=== PATIENT | male | born 1945 | race Caucasian/White ===

== ENCOUNTER 2017-01-08 13:19 | Inpatient (IN) | payer OTHER, MEDICARE ==
[2017-01-08] MEDS ORDERED: SODIUM CHLORIDE 1,000 ML IV STA (13:43)
--- NOTE | 2017-01-08 13:43 | PDOC ---
History of Present Illness - General Chief Complaint: Revisit, Lab Variance Stated Complaint: LAB CHECK LOW NA Time Seen by Provider: 01/08/17 13:43 History Source: Patient Exam Limitations: No Limitations - History of Present Illness Timing/Duration: 1 week Severity: moderate Associated Symptoms: reports: cough, diaphoresis, fever/chills. denies: chest pain, headaches, seizure, shortness of breath, syncope, weakness Past History - Past Medical History Allergies/Adverse Reactions: Allergies Allergy/AdvReac Type Severity Reaction Status Date / Time cephalexin monohydrate Allergy Hives, rash Verified 01/08/17 13:20 [From Keflex] ciprofloxacin [From Cipro] Allergy Rash Verified 01/08/17 13:20 ciprofloxacin HCl Allergy Rash Verified 01/08/17 13:20 [From Cipro] shante Allergy Verified 01/08/17 13:20 Penicillins Allergy Itch - Verified 01/08/17 13:20 hands and feet poison joe extract Allergy Verified 01/08/17 13:20 Quinolones Allergy Verified 01/08/17 13:20 gingo fruit Allergy Uncoded 01/08/17 13:20 Home Medications: Ambulatory Orders Amlodipine Besylate 5 mg PO DAILY tablet 01/06/17 Mometasone Furoate [Asmanex] 1 puff IH DAILY inhaler 01/06/17 Hydrochlorothiazide [Hctz -] 12.5 mg PO DAILY 01/08/17 Valsartan [Diovan] 320 mg PO DAILY 01/08/17 HTN: Yes - Psycho/Social/Smoking Cessation Hx Suicidal Ideation: No Smoking History: Never smoked Hx Alcohol Use: No Drug/Substance Use Hx: No Substance Use Type: None Review of Systems - Review of Systems Constitutional: Yes: Chills, Diaphoresis, Fever HEENTM: Yes: Nose Congestion, Dental Problems. No: Tinnitus, Hearing Loss, Throat Pain, Difficulty Swallowing, Mouth Swelling Respiratory: Yes: Cough Cardiac (ROS): No: Symptoms Reported ABD/GI: No: Symptoms Reported : No: Symptoms Reported Musculoskeletal: No: Symptoms Reported Integumentary: No: Symptoms Reported Neurological: Yes: Dizziness All Other Systems: Reviewed and Negative *Physical Exam - Vital Signs Last Vital Signs Temp Pulse Resp BP Pulse Ox 97.7 F 81 17 114/68 100 01/08/17 13:22 01/08/17 13:22 01/08/17 13:22 01/08/17 13:22 01/08/17 13:22 - Physical Exam General Appearance: Yes: Nourished, Appropriately Dressed. No: Apparent Distress HEENT: positive: Sinus Tenderness Neck: positive: Lymphadenopathy (R) Respiratory/Chest: positive: Lungs Clear, Normal Breath Sounds Cardiovascular: positive: Regular Rhythm, Regular Rate Gastrointestinal/Abdominal: positive: Normal Bowel Sounds, Soft Musculoskeletal: positive: Normal Inspection Extremity: positive: Normal Capillary Refill, Normal Inspection, Normal Range of Motion Integumentary: positive: Normal Color, Dry, Warm Neurologic: positive: cash checker II-XII NML intact, Fully Oriented, Alert, Normal Mood/ Affect, Normal Response, Motor Strength 03/24 ED Treatment Course - LABORATORY CBC & Chemistry Diagram: 01/08/17 14:08 01/08/17 14:08 *DC/Admit/Observation/Transfer Diagnosis at time of Disposition: Sinusitis, Hyponatremia - Discharge Dispostion Condition at time of disposition: Stable Admit: Yes
[2017-01-08 14:45] LABS: EOSINOPHIL 2.5 % (0-4.5); MCH 29.8 pg (25.7-33.7); MCHC 32.3 g/dl (32.0-35.9); MEAN CELL VOLUME 92.2 fl (80-96); MEAN PLT VOLUME 7.9 fl (7.5-11.1); NEUTROPHILS 83.2 % (42.8-82.8); PLATELET COUNT 211 K/MM3 (134-434); RDW 13.1 % (11.9-15.9); WHITE BLOOD COUNT 5.7 K/mm3 (4.0-10.0)
[2017-01-08 14:52] LABS: ALBUMIN 3.4 g/dl (3.5-5.0); ALK PHOS 546 U/L (32-92); ANION GAP 10 (8-16); BILIRUBIN,TOTAL 0.3 mg/dl (0.2-1.0); CALCIUM 8.6 mg/dl (8.4-10.2); CO2 23 mmol/L (22-28); CREATININE 0.9 mg/dl (0.6-1.3); GLUCOSE,RANDOM 126 mg/dl (74-106); SGOT/AST 246 U/L (10-42); SGPT/ALT 244 U/L (10-40); TOT PROT 6.1 g/dl (6.4-8.3)
[2017-01-08 14:59] LABS: PH,URINE 6.5 (4.5-8); URINE APPEARANCE Clear; URINE BILIRUBIN 1+ (NEGATIVE); URINE GLUCOSE (UA) Negative (NEGATIVE); URINE KETONE 1+ (NEGATIVE); URINE LEUK ESTERASE Negative (NEGATIVE); URINE NITRITE Negative (NEGATIVE); URINE PROTEIN Negative (NEGATIVE); URINE UROBILINOGEN 0.2 E.U/dl (0.2-1.0)
[2017-01-08 15:06] LABS: URINE BLOOD Negative (NEGATIVE); URINE COLOR YELLOW
[2017-01-08 16:20] LABS: PLATELET COMMENT2 SLT PLT CLUMPING; PLATELET ESTIMATE ADEQUATE (NORMAL)
[2017-01-08] MEDS ORDERED: VANCOMYCIN 1,000 MG in DEXTROSE 5%-WATER - 250 ML IVPB ONE (16:34)
[2017-01-08] MEDS ORDERED: AZTREONAM 2 GM in DEXTROSE 5%-WATER - 100 ML IV ONE (16:34)
[2017-01-08] MEDS ORDERED: VANCOMYCIN 1,000 MG VIAL (RESTRICTED TO ID ONLY) ONE (16:51)
[2017-01-08] MEDS ORDERED: SODIUM CHLORIDE 1,000 ML IV SCH (17:15)
[2017-01-08 18:46] VITALS: BMI 22.4
[2017-01-08] MEDS ORDERED: AZTREONAM 1 GM in DEXTROSE 5%-WATER - 50 ML IVPB ONE (20:00)
--- NOTE | 2017-01-08 20:55 | HP ---
[id number] (Director of Head/Neck Surgery, [facility]) ENT: Dr. Burke Shaw ([facility]) Oral Surgeon: Dr. Jerry Negron ([facility]) HISTORY OF PRESENT ILLNESS: This is a 71 y/o male with a past medical history of Hypertension, Chronic Sinusitis . Who presents to the emergency department sent in by PMD for abnormal lab value- Na, +Blood Cultures. Patient reports having severe chills and fever 99.5- 101.5. He reports being on Bactrim since 01/01 and had stopped taking HCTZ last Monday per his PMD due being hyponatremic. Patient's spouse reports patient's recent period of agitation which she attributes to his low sodium level. Patient denies dizziness, cough, SOB, CP, AP, N/V/D, constipation, dysuria. Patient reports using Saline Washes via Neti bottle over 1.5yrs for sinus congestion ER course was notable for: (1) Lactic Acid 2.15 fluid bolus given (2) Na 129 (3) LFTs > 6xNL Recent Travel: None PAST MEDICAL HISTORY: See HPI PAST SURGICAL HISTORY: Radical Prostectomy 2006 R-Ruptured Anterior Tendon Repair ([facility]) Colonoscopy (09/2016) Social History: Smoking: Former cigarette/cigar > 40 yrs Alcohol: Socially- wine with dinner/occasions Drugs: Former- Marijuana use early 20s Family History: Mother: HTN, Colon Ca, age 95 Father: Chronic Sinus, HTN, Lymphoma, age 83 Grandfather: Stroke Allergies cephalexin monohydrate [From Keflex] Allergy (Verified 01/08/17 13:20) Hives, rash ciprofloxacin [From Cipro] Allergy (Verified 01/08/17 13:20) Rash ciprofloxacin HCl [From Cipro] Allergy (Verified 01/08/17 13:20) Rash shante Allergy (Verified 01/08/17 13:20) Penicillins Allergy (Verified 01/08/17 13:20) Itch - hands and feet poison joe extract Allergy (Verified 01/08/17 13:20) Quinolones Allergy (Verified 01/08/17 13:20) gingo fruit Allergy (Uncoded 01/08/17 13:20) HOME MEDICATIONS: Home Medications Medication Instructions Recorded Amlodipine Besylate 5 mg PO DAILY tablet 01/06/17 Mometasone Furoate [Asmanex] 1 puff IH DAILY inhaler 01/06/17 Hydrochlorothiazide [Hctz -] 12.5 mg PO DAILY 01/08/17 Lorazepam [Ativan] 1 mg PO HS PRN 01/08/17 Valsartan [Diovan] 320 mg PO DAILY 01/08/17 REVIEW OF SYSTEMS CONSTITUTIONAL: fever, chills Absent: diaphoresis, generalized weakness, malaise, loss of appetite, weight change HEENT: nasal congestion Absent: rhinorrhea, throat pain, throat swelling, difficulty swallowing, mouth swelling, ear pain, eye pain, visual changes CARDIOVASCULAR: Absent: chest pain, syncope, palpitations, irregular heart rate, lightheadedness , peripheral edema RESPIRATORY: Absent: cough, shortness of breath, dyspnea with exertion, orthopnea, wheezing, stridor, hemoptysis GASTROINTESTINAL: Absent: abdominal pain, abdominal distension, nausea, vomiting, diarrhea, constipation, melena, hematochezia GENITOURINARY: Absent: dysuria, frequency, urgency, hesitancy, hematuria, flank pain, genital pain MUSCULOSKELETAL: Absent: myalgia, arthralgia, joint swelling, back pain, neck pain SKIN: Absent: rash, itching, pallor HEMATOLOGIC/IMMUNOLOGIC: Absent: easy bleeding, easy bruising, lymphadenopathy, frequent infections ENDOCRINE: Absent: unexplained weight gain, unexplained weight loss, heat intolerance, cold intolerance NEUROLOGIC: Absent: headache, focal weakness or paresthesias, dizziness, unsteady gait, seizure, mental status changes, bladder or bowel incontinence PSYCHIATRIC: Absent: anxiety, depression, suicidal or homicidal ideation, hallucinations. PHYSICAL EXAMINATION Vital Signs - 24 hr 01/08/17 01/08/17 01/08/17 17:30 20:15 20:46 Temperature 98.4 F 99.8 F H Pulse Rate 84 Pulse Rate [ 86 Right] Respiratory 18 18 18 Rate Blood Pressure 121/89 Blood Pressure 155/60 [Left Arm] O2 Sat by Pulse 97 97 Oximetry (%) GENERAL: Awake, alert, and fully oriented, in no acute distress. HEAD: Normal with no signs of trauma. EYES: Pupils equal, round and reactive to light, extraocular movements intact, sclera anicteric, conjunctiva clear. No lid lag. EARS, NOSE, THROAT: Ears normal, nares patent, oropharynx clear without exudates. Moist mucous membranes. NECK: Normal range of motion, supple without lymphadenopathy, JVD, or masses. LUNGS: Breath sounds equal, clear to auscultation bilaterally. No wheezes, and no crackles. No accessory muscle use. HEART: Regular rate and rhythm, normal S1 and S2 without murmur, rub or gallop. ABDOMEN: Soft, nontender, not distended, normoactive bowel sounds, no guarding, no rebound, no masses. No hepatomegaly or splenomegaly. MUSCULOSKELETAL: Normal range of motion at all joints. No bony deformities or tenderness. No CVA tenderness. UPPER EXTREMITIES: 2+ pulses, warm, well-perfused. No cyanosis. No clubbing. Cap refill <2 seconds. No peripheral edema. LOWER EXTREMITIES: 2+ pulses, warm, well-perfused. No calf tenderness. No peripheral edema. NEUROLOGICAL: Cranial nerves II-XII intact. Normal speech. Gait not observed. PSYCHIATRIC: Cooperative. Good eye contact. Appropriate mood and affect. SKIN: Warm, dry, normal turgor, no rashes or lesions noted. Laboratory Results - last 24 hr 01/08/17 01/08/17 01/08/17 14:08 14:08 14:08 WBC RBC Hgb Hct MCV MCHC RDW Plt Count MPV Neutrophils % Lymphocytes % Monocytes % Eosinophils % Basophils % Platelet Estimate Platelet Comment Sodium 129 L Potassium 4.5 Chloride 96 L Carbon Dioxide 23 Anion Gap 10 BUN 16 Creatinine 0.9 Creat Clearance w eGFR > 60 Random Glucose 126 H Lactic Acid Calcium 8.6 Total Bilirubin 0.3 D AST 246 H D ALT 244 H D Alkaline Phosphatase 546 H D Total Protein 6.1 L Albumin 3.4 L Urine Color Yellow Urine Appearance Clear Urine pH 6.5 Ur Specific [place] 1.015 Urine Protein Negative Urine Glucose (UA) Negative Urine Ketones 1+ H Urine Blood Negative Urine Nitrite Negative Urine Bilirubin 1+ H Urine Urobilinogen 0.2 e.u/dl Ur Leukocyte Esterase Negative Ur Random Sodium 29 Ur Random Potassium 44.1 Ur Random Chloride 45 01/08/17 01/08/17 01/08/17 14:08 14:08 17:50 WBC 5.7 RBC 4.34 Hgb 12.9 Hct 40.0 MCV 92.2 MCHC 32.3 RDW 13.1 Plt Count 211 MPV 7.9 Neutrophils % 83.2 H Lymphocytes % 7.1 L D Monocytes % 7.2 Eosinophils % 2.5 Basophils % 0.0 Platelet Estimate Adequate Platelet Comment Slt plt clumping Sodium Potassium Chloride Carbon Dioxide Anion Gap BUN Creatinine Creat Clearance w eGFR Random Glucose Lactic Acid 2.159 H* 1.050 Calcium Total Bilirubin AST ALT Alkaline Phosphatase Total Protein Albumin Urine Color Urine Appearance Urine pH Ur Specific [place] Urine Protein Urine Glucose (UA) Urine Ketones Urine Blood Urine Nitrite Urine Bilirubin Urine Urobilinogen Ur Leukocyte Esterase Ur Random Sodium Ur Random Potassium Ur Random Chloride ASSESSMENT/PLAN: This is a 71 y/o male with a PMHx of: HTN, Sinus Infections. Presents to the ED with Fever, Chills, abnormal lab values. Admitted for Acute Sepsis with Sinusitis, Acute Hyponatremia for further evaluation of their emergent condition. Plan: 1 Acute Sepsis w Sinusitis - Likely due to Klebsiella Oxytoca - Blood Cultures-pending - Influenza Swab- negative - CT report- reviewed - NS bolus, Vancomycin/Azactam given in ED, patient has known allergies to PCN, Quinolones, Cephalosporins - Will continue Vanco, Azactam - Appreciate ID Consult - Appreciate ENT consult - Lactic Acid trending down- 2.15~1.05, post fluid bolus - Continue IVF - Monitor for fever - Monitor CBC 2. Hyponatremia - Likely secondary to HCTZ - Fluid Bolus given in ED - Continue IVF - Na corrected 133 - Monitor BMP 3. Transaminitis - Likely secondary to infection - Abdominal US- pending - Avoid Acetaminophen - Monitor BMP 4. HTN - Continue Norvasc, Valsartan - Hold HCTZ 2/2 Hyponatremia 5. FEN - NS@75ml/hr - Replete Na - Low Na Diet 6. DVT Prophylaxis - OOB - SCDs Code Status: Full Code Dispo: Admit for inpatient care Problem List - Problem (1) Hyponatremia Code(s): E87.1 - HYPO-OSMOLALITY AND HYPONATREMIA (2) Sinusitis Code(s): J32.9 - CHRONIC SINUSITIS, UNSPECIFIED (3) Lactic acidemia Code(s): E87.2 - ACIDOSIS (4) Transaminitis Code(s): R74.0 - NONSPEC ELEV OF LEVELS OF TRANSAMNS & LACTIC ACID DEHYDRGNSE (5) HTN (hypertension) Code(s): I10 - ESSENTIAL (PRIMARY) HYPERTENSION (6) DVT prophylaxis Code(s): EQN3547 - Visit type - Emergency Visit Emergency Visit: Yes ED Registration Date: 01/08/17 Care time: The patient presented to the Emergency Department on the above date and was hospitalized for further evaluation of their emergent condition. - New Patient This patient is new to me today: Yes Date on this admission: 01/08/17 - Critical Care Critical Care patient: No
[2017-01-08] MEDS: HEPARIN NA (PORCINE) 5,000 UNITS/ML 1ML VIAL SQ SCH (21:12)
[2017-01-08] MEDS ORDERED: LORazepam 0.5 MG TABLET PO PRN (21:53)
--- NOTE | 2017-01-09 07:35 | PN ---
[id number] patient is a 71 y/o male with a past medical history of Hypertension , Chronic Sinusitis. patient was admitted for hyponatremia and transanimitis, patient was found to have subacute sinusitis. PCP: Dr. Segundo ENT: Dr. Osvaldo Montana [phone] (Director of Head/Neck Surgery, [facility]) ENT: Dr. Burke Shaw ([facility]) Oral Surgeon: Dr. Jerry Negron ([facility]) Vital Signs Period Temp Pulse Resp BP Sys/Mak Pulse Ox Last 24 Hr 98.4 F-99.8 F 69-86 18-18 102-155/60-89 97-97 GENERAL: The patient is awake, alert, and fully oriented, in no acute distress. HEAD: Normal with no signs of trauma. EYES: PERRL, extraocular movements intact, sclera anicteric, conjunctiva clear. No ptosis. ENT: Ears normal, nares patent, oropharynx clear without exudates, moist mucous membranes. maxillary sinus tenderness. nasal congestion noted NECK: Trachea midline, full range of motion, supple. LUNGS: Breath sounds equal, clear to auscultation bilaterally, no wheezes, no crackles, no accessory muscle use. HEART: Regular rate and rhythm, S1, S2 without murmur, rub or gallop. ABDOMEN: Soft, nontender, nondistended, normoactive bowel sounds, no guarding, no rebound, no hepatosplenomegaly, no masses. EXTREMITIES: 2+ pulses, warm, well-perfused, no edema. NEUROLOGICAL: Cranial nerves II through XII grossly intact. Normal speech, gait not observed. PSYCH: Normal mood, normal affect. SKIN: Warm, dry, normal turgor, no rashes or lesions noted Laboratory Results - last 24 hr 01/08/17 17:50 Lactic Acid 1.050 CBC WBC 4.3 K/mm3 (4.0-10.0) 01/09/17 07:40 RBC 3.87 M/mm3 (4.00-5.60) L 01/09/17 07:40 Hgb 11.8 GM/dl (11.7-16.9) 01/09/17 07:40 Hct 35.8 % (35.4-49) 01/09/17 07:40 MCV 92.7 fl (80-96) 01/09/17 07:40 MCHC 32.8 g/dl (32.0-35.9) 01/09/17 07:40 RDW 13.6 % (11.9-15.9) 01/09/17 07:40 Plt Count 200 K/MM3 (134-434) 01/09/17 07:40 MPV 8.2 fl (7.5-11.1) 01/09/17 07:40 Neutrophils % 60.8 % (42.8-82.8) D 01/09/17 07:40 Lymphocytes % 18.9 % (8-40) D 01/09/17 07:40 Monocytes % 13.1 % (3.8-10.2) H D 01/09/17 07:40 Eosinophils % 6.8 % (0-4.5) H D 01/09/17 07:40 Basophils % 0.4 % (0-2.0) D 01/09/17 07:40 Platelet Estimate Adequate (NORMAL) 01/08/17 14:08 Platelet Comment Few large plts 01/08/17 14:08 Platelet Comment Slt plt clumping 01/08/17 14:08 CMP Sodium 132 mmol/L (136-145) L 01/09/17 08:00 Potassium 3.9 mmol/L (3.5-5.1) 01/09/17 08:00 Chloride 101 mmol/L (98-107) 01/09/17 08:00 Carbon Dioxide 24 mmol/L (22-28) 01/09/17 08:00 Anion Gap 7 (8-16) L 01/09/17 08:00 BUN 11 mg/dl (7-18) D 01/09/17 08:00 Creatinine 0.9 mg/dl (0.6-1.3) 01/09/17 08:00 Creat Clearance w eGFR > 60 (>60) 01/09/17 08:00 Random Glucose 105 mg/dl (74-106) 01/09/17 08:00 Lactic Acid 0.734 mmol/L (0.4-2.0) 01/09/17 07:40 Calcium 8.1 mg/dl (8.4-10.2) L 01/09/17 08:00 Magnesium 2.0 mg/dL (1.8-2.4) 01/09/17 08:00 Total Bilirubin 0.5 mg/dl (0.2-1.0) D 01/09/17 08:00 AST 209 U/L (10-42) H 01/09/17 08:00 ALT 234 U/L (10-40) H 01/09/17 08:00 Alkaline Phosphatase 551 U/L (32-92) H 01/09/17 08:00 Total Protein 5.1 g/dl (6.4-8.3) L 01/09/17 08:00 Albumin 2.8 g/dl (3.5-5.0) L 01/09/17 08:00 Active Medications Generic Name Dose Route Start Last Admin Trade Name Freq PRN Reason Stop Dose Admin Heparin Sodium (Porcine) 5,000 unit 01/08/17 22:00 01/08/17 21:12 Heparin - SQ 5,000 unit BID MARINA Administration Ibuprofen 400 mg 01/08/17 21:52 Motrin - PO Q6H PRN PAIN Lorazepam 0.5 mg 01/08/17 21:53 Ativan - PO HS PRN INSOMNIA Microbiology 01/08/17 17:50 Nasopharyngeal Swab Influenza Types A,B Antigen (AUSTYN) - Final , negative 01/08/17 17:50 Nasopharyngeal Swab - Final IMAGING CT scan of sinus: multifocal chronic/subacute sinusitis involving left frontal and left maxillary sinus, ? left maxilary sinus muccocele CT of Head: no mass, no ich noted, paranasal sinus inflammatory changes chest xray,no infilitrate no effusion noted ASSESSMENT/PLAN: 1) ID Acute Sinusitis - pt reports + culture of klebsiella oxytoca from sinus last week, continue vanco and clindaymcin as per ID, requested microbiology and sensitivity report form [place], will bring in latest micro report - lactic acid wnl, no leukocytosisi noted pt afebrile - Blood Cultures-ntd from 01/06/17, blood cultures 01/08 pending - pending mri of sinus 2) neph hyponatremia - likely secondary from dehydration - serum sodium trending upward, close monitoring, repeat BMP in AM - hold hctz 3)GI transanimitis - pt reports taking bactrim last dose 01/07, likely secondary to adverse reaction vs sepsis - abdominal ultrasound, liver and kidney cyst noted, CBD dilation noted. homegenous liver - benign abdominal exam, LFT's trending downward 3) card HTN - Continue Norvasc, Valsartan - b/p at goal - Hold HCTZ 2/2 Hyponatremia F/E/N -regular diet DVT Prophylaxis - OOB - SCDs - heparin Code Status: Full Code Dispo: Admit for inpatient care, case discussed with Dr Shaw (patient's private ENT) at [facility], requested to hold transfer and he will accept patient for transfer to [place] if patient is need of emergent surgical intervention at this time. Dr Shaw agrees with IV antibiotics and requests to be kept informed of all diagnostics, Dr Montana (patient's private ENT) at [facility] will be out of the area this week and is unavailable. lengthy conversation with and patient in regards to transfer to [place], both patient and request to stay at [facility] for IV antibiotics, if any surgical intervention is required, patient and is requesting transfer to [facility]. Visit type - Emergency Visit Emergency Visit: Yes ED Registration Date: 01/08/17 Care time: The patient presented to the Emergency Department on the above date and was hospitalized for further evaluation of their emergent condition. - New Patient This patient is new to me today: Yes Date on this admission: 01/09/17 - Critical Care Critical Care patient: No - Discharge Referral Referred to [facility] Yes Physician Referral: Evangelista Spencer MD (Fam Med), Nando Segundo MD (Int Med)
--- NOTE | 2017-01-09 08:40 | EKG ---
Test Reason : Blood Pressure : / mmHG Vent. Rate : 077 BPM Atrial Rate : 077 BPM P-R Int : 166 ms QRS Dur : 084 ms QT Int : 364 ms P-R-T Axes : 011 -02 035 degrees QTc Int : 411 ms NORMAL SINUS RHYTHM NORMAL ECG NO PREVIOUS ECGS AVAILABLE Confirmed by VANESA VANESSA MD ([id number]) on 01/09/2017 8:39:59 AM Referred By: ITALO Confirmed By:VANESA VANESSA MD
--- NOTE | 2017-01-09 08:59 | HOSP ---
Subjective - Review of Symptoms Events since last encounter: Received phone call on01/08/2017 around 6:30Pm from Dr.Salvator Tobias (Head/ Neak surgeon) who is taking care of the patient at [facility], would arrange a transfer for 01/09/2017. Possible transfer to [facility] today. Tx will be arranged by . Physical Examination Vital Signs: Vital Signs Temperature 98.8 F 01/09/17 06:00 Pulse Rate 69 01/09/17 06:00 Respiratory Rate 18 01/09/17 06:00 Blood Pressure 102/60 01/09/17 06:00 O2 Sat by Pulse Oximetry (%) 97 01/09/17 06:00
[2017-01-09 09:07] LABS: INR 1.1 (0.82-1.09); PROTHROMBIN TIME (PATIENT) 12.3 SEC (10.2-13.0)
[2017-01-09 09:27] LABS: ALBUMIN 2.8 g/dl (3.5-5.0); ALK PHOS 551 U/L (32-92); ANION GAP 7 (8-16); BILIRUBIN,TOTAL 0.5 mg/dl (0.2-1.0); CALCIUM 8.1 mg/dl (8.4-10.2); CO2 24 mmol/L (22-28); CREATININE 0.9 mg/dl (0.6-1.3); GLUCOSE,RANDOM 105 mg/dl (74-106); SGOT/AST 209 U/L (10-42); SGPT/ALT 234 U/L (10-40); TOT PROT 5.1 g/dl (6.4-8.3)
[2017-01-09 09:48] LABS: BASOPHIL 0.4 % (0-2.0); EOSINOPHIL 6.8 % (0-4.5); MCH 30.4 pg (25.7-33.7); MCHC 32.8 g/dl (32.0-35.9); MEAN CELL VOLUME 92.7 fl (80-96); MEAN PLT VOLUME 8.2 fl (7.5-11.1); NEUTROPHILS 60.8 % (42.8-82.8); PLATELET COUNT 200 K/MM3 (134-434); RDW 13.6 % (11.9-15.9); WHITE BLOOD COUNT 4.3 K/mm3 (4.0-10.0)
[2017-01-09] MEDS: HEPARIN NA (PORCINE) 5,000 UNITS/ML 1ML VIAL SQ SCH ×2 (09:51→22:17)
--- NOTE | 2017-01-09 10:40 | PN ---
Progress Note (short form) - Note Progress Note: ID Consult dictated Pansinusitis Fever, possible sepsis v. adverse drug rxn ( Bactrim) Elevated LFTs possible adverse drug rxn Multiple drug allergies ENT evaluation Empiric vanco/ aztreonam
[2017-01-09] MEDS: VANCOMYCIN 1 GRAM (PRE-DOCKED) 250 ML IVPB SCH ×2 (11:16→22:16)
[2017-01-09] MEDS: AZTREONAM 1 GM in DEXTROSE 5%-WATER - 50 ML IVPB SCH ×2 (11:16→17:35)
[2017-01-09 11:47] LABS: ALBUMIN 2.8 g/dl (3.5-5.0); BILIRUBIN,DIRECT 0.4 mg/dl (0.0-0.2); BILIRUBIN,TOTAL 0.6 mg/dl (0.2-1.0); TOT PROT 5.2 g/dl (6.4-8.3)
--- NOTE | 2017-01-09 12:51 | CONS ---
DATE OF CONSULTATION: DATE OF DICTATION: 01/09/2017 The patient is a 71-year-old male who is evaluated for fever. The patient has a long history of chronic sinusitis, for which he is followed at [facility]. He was recently evaluated for acute exacerbation and was prescribed antibiotics. He reports that in November 2016 he developed a dental infection and was treated with clindamycin and clarithromycin. Most recently he was seen in [facility], where a "swab" of his nasopharynx was performed. His reports that culture revealed Klebsiella oxytoca. He had completed an 8-day course of oral Bactrim on the day prior to admission. He now presents with worsening frontal sinus pain, fever and chills. He had presented to his primary care doctor, where he was found to be hyponatremic and had elevated liver enzymes. On admission, a CAT scan was performed and showed pansinusitis with opacification of the left frontal and left maxillary sinuses as well as evidence of chronic sinusitis involving the right frontal, right ethmoid, and right maxillary sinuses. Because of multiple antibiotic allergies, he was empirically treated with vancomycin and Azactam. His course was complicated by hyponatremia and elevated liver enzymes. He denies abdominal pain. No nausea, vomiting, or diarrhea. No known prior history of abnormal liver enzymes. Past medical history positive for chronic sinusitis, hypertension. PAST SURGICAL HISTORY: Status post prostatectomy. Allergies to PENICILLIN, CEPHALEXIN, CIPROFLOXACIN. Patient reports allergies to the BETA-LACTAMS dates back to his 20s, when he had developed a rash. In addition, he developed rash with CIPROFLOXACIN. Medications include Norvasc, Asmanex. SOCIAL HISTORY: Lives at home with his . He is a former smoker. Reports drinking wine. No history of alcohol abuse or illicit drug use. SYSTEMS REVIEW: Neurologic: Positive for some agitation, as per his . Cardiac: Negative chest pain or palpitations. Respiratory: Negative cough or sputum production. Gastrointestinal: Negative vomiting or diarrhea. Genitourinary: Negative for urinary tract infection. LABORATORY DATA: White count 4.3, 60 neutrophils, 18 lymphocytes, 3 eosinophils. Hematocrit 35.8, platelet count 200. Sodium 132, BUN 11, creatinine 0.9, total bilirubin 0.3, alkaline phosphatase 546, AST 246, ALT 244. Urinalysis negative. Flu swab negative. PHYSICAL EXAMINATION: General: He is awake and alert. He is not acutely toxic appearing. He has somewhat nasal intonation. He is in no acute distress. Breathing is nonlabored. Vital Signs: Temperature 98.8. Blood pressure 102/60. Pulse 69, regular. Respirations 18 per minute. ENT: There is tenderness present over the maxillary sinuses bilaterally. Sclerae anicteric. Oropharynx negative. Heart Sounds: S1, S2. Lungs: Crepitations at the bases bilaterally. Abdomen: Soft. No tenderness elicited. No mass, rebound or rigidity. Extremities: Negative for edema. IMPRESSION: 1. Pansinusitis. 2. Fever, possible sepsis versus adverse drug reaction (Bactrim). 3. Elevated liver enzymes, possible adverse drug reaction. 4. Multiple drug allergies. Agree with ENT evaluation, empiric antibiotic coverage for sinusitis, in this patient with multiple antibiotic allergies, with vancomycin and Azactam. The patient's will bring in the culture report from [facility] with respect to sinus isolate. Suspect recent febrile illness, eosinophilia, and elevated liver enzymes may be secondary to recent Bactrim therapy. Etiology of hyponatremia not clear. Case discussed with patient's present at the time of examination. Will follow. Thank you for the kind referral. ISHAN LAWTON M.D. JEREMY/[id number]
[2017-01-09] MEDS ORDERED: SODIUM CHLORIDE 1,000 ML IV SCH ×2 (14:15→20:00)
[2017-01-09] MEDS ORDERED: PT OWN MED DRAWER 7, Y5N ONE (16:47)
[2017-01-09] MEDS: IBUPROFEN 400 MG TABLET (FP) PO PRN ×2 (16:48→23:08)
[2017-01-09] MEDS ORDERED: OXYMETAZOLINE 0.05% NASAL SOLUTION 15 ML BOTTLE NS PRN (18:48)
[2017-01-09] MEDS ORDERED: LORazepam 1 MG TABLET PO PRN (18:49)
[2017-01-09] MEDS ORDERED: SODIUM CHLORIDE 1,000 ML IV STA (19:01)
--- NOTE | 2017-01-09 21:32 | HOSP ---
Subjective - Review of Symptoms Events since last encounter: Advised 5:00 pm patient febrile to 100.9. Ordered dose of motrin be given.. Advised 6:00 borderline hypotensive. Ordered bolus 1L NS x 1 and continue hourly rate at 75ml/hr. Discussed case with . Answered all questions. Advised she could call Dr. Salas, ID sales representative consultant on case. Discussed with nursing truck repair supervisor 's concern that a hospitalist MD is not at [facility]. was advised we would transfer to patient to [facility] and patient would be placed on teaching service. declined. Physical Examination Vital Signs: Vital Signs Temperature 99.3 F 01/09/17 18:15 Pulse Rate 66 01/09/17 18:15 Respiratory Rate 16 01/09/17 20:49 Blood Pressure 103/55 01/09/17 18:15 O2 Sat by Pulse Oximetry (%) 98 01/09/17 20:49 Labs: CBC, BMP 01/09/17 07:40 01/09/17 08:00
[2017-01-09] MEDS: FLUTICASONE PROP 0.05% 16 GM NASAL SPRAY NS SCH (22:23)
[2017-01-09] MEDS ORDERED: LORazepam 0.5 MG TABLET ONE (22:55)
[2017-01-10] MEDS ORDERED: PT OWN MED DRAWER 7, Y5N ONE ×3 (01:26→17:51)
[2017-01-10] MEDS: AZTREONAM 1 GM in DEXTROSE 5%-WATER - 50 ML IVPB SCH ×3 (01:35→17:55)
[2017-01-10 08:46] LABS: ALBUMIN 2.7 g/dl (3.5-5.0); ALK PHOS 502 U/L (32-92); ANION GAP 7 (8-16); BILIRUBIN,TOTAL 0.7 mg/dl (0.2-1.0); CALCIUM 8.2 mg/dl (8.4-10.2); CO2 24 mmol/L (22-28); CREATININE 0.6 mg/dl (0.6-1.3); GLUCOSE,RANDOM 100 mg/dl (74-106); MAGNESIUM 1.9 mg/dL (1.8-2.4); PHOSPHOROUS 3.2 mg/dl (2.5-4.6); SGOT/AST 109 U/L (10-42); SGPT/ALT 183 U/L (10-40)
[2017-01-10 09:08] LABS: BASOPHIL 0.7 % (0-2.0); EOSINOPHIL 9.1 % (0-4.5); MCH 28.9 pg (25.7-33.7); MCHC 31.2 g/dl (32.0-35.9); MEAN CELL VOLUME 92.7 fl (80-96); MEAN PLT VOLUME 7.6 fl (7.5-11.1); NEUTROPHILS 54.3 % (42.8-82.8); PLATELET COUNT 234 K/MM3 (134-434); RDW 13.5 % (11.9-15.9); WHITE BLOOD COUNT 5.2 K/mm3 (4.0-10.0)
[2017-01-10] MEDS: FLUTICASONE PROP 0.05% 16 GM NASAL SPRAY NS SCH (09:34)
[2017-01-10] MEDS: HEPARIN NA (PORCINE) 5,000 UNITS/ML 1ML VIAL SQ SCH ×2 (09:34→21:35)
[2017-01-10] MEDS: VANCOMYCIN 1 GRAM (PRE-DOCKED) 250 ML IVPB SCH ×2 (10:03→22:23)
--- NOTE | 2017-01-10 10:35 | PN ---
Progress Note, Physician History of Present Illness: Feeling better C/O mild frontal sinus congestion, nasal discharge No fever/ chills Tolerating antibiotics Blood c/s (-) WBC WNL with eosinophilia LFTs improving - Current Medication List Current Medications: Active Medications Fluticasone Propionate (Flonase -) 2 spray NS DAILY MARINA Last Admin: 01/10/17 09:34 Dose: 2 sprays Heparin Sodium (Porcine) (Heparin -) 5,000 unit SQ BID MARINA Last Admin: 01/10/17 09:34 Dose: 5,000 unit Vancomycin HCl (Vancomycin (Pre-Docked)) 250 mls @ 166.667 mls/hr IVPB Q12H MARINA Last Admin: 01/10/17 10:03 Dose: 166.667 mls/hr Aztreonam 1 gm/ Dextrose 50 mls @ 100 mls/hr IVPB Q8H-IV MARINA PRN Reason: Protocol Last Admin: 01/10/17 09:35 Dose: 100 mls/hr Ibuprofen (Motrin -) 400 mg PO Q6H PRN PRN Reason: PAIN Last Admin: 01/09/17 23:08 Dose: 400 mg Lorazepam (Ativan -) 0.5 mg PO HS PRN PRN Reason: INSOMNIA Lorazepam (Ativan -) 1 mg PO HS PRN PRN Reason: INSOMNIA Oxymetazoline HCl (Afrin -) 2 spray NS BID PRN PRN Reason: NASAL CONGESTION - Objective Vital Signs: Vital Signs Temperature 98.4 F 01/10/17 05:32 Pulse Rate 69 01/10/17 05:32 Respiratory Rate 18 01/10/17 08:58 Blood Pressure 116/58 01/10/17 05:32 O2 Sat by Pulse Oximetry (%) 95 01/10/17 08:58 Constitutional: Yes: No Distress Eyes: Yes: Conjunctiva Clear HENT: Yes: Other (no tenderness over frontal/ maxillary sinuses) Cardiovascular: Yes: Regular Rate and Rhythm, S2 Respiratory: Yes: CTA Bilaterally Gastrointestinal: Yes: Normal Bowel Sounds, Soft. No: Tenderness Edema: No Labs: CBC, BMP 01/10/17 07:56 01/10/17 07:56 INR, PTT INR 1.10 (0.82-1.09) 01/09/17 07:40 Assessment/Plan Chronic sinusitis Probable adverse drug reaction secondary to Bactrim Probable DRESS syndrome- improved Elevated LFTs- probably secondary to Bactrim- improved Hyponatremia- improved If blood c/s negative at 48hr (later today), stop antibiotics Outpatient ENT follow up at [facility] Discussed with at bedside
--- NOTE | 2017-01-10 13:38 | PN ---
[id number] OBJECTIVE: patient is a 71 y/o male with a past medical history of Hypertension , Chronic Sinusitis. patient was admitted for hyponatremia and transanimitis, patient was found to have subacute sinusitis. PCP: Dr. Segundo ENT: Dr. Osvaldo [place] [phone] (Director of Head/Neck Surgery, [facility]) ENT: Dr. Burke Shaw ([facility]) Oral Surgeon: Dr. Jerry Negron ([facility]) Vital Signs Period Temp Pulse Resp BP Sys/Mak Pulse Ox Last 24 Hr 98.4 F-100.9 F 65-74 16-18 103-116/55-68 95-99 PHYSICAL EXAMINATION GENERAL: The patient is awake, alert, and fully oriented, in no acute distress. HEAD: Normal with no signs of trauma. EYES: PERRL, extraocular movements intact, sclera anicteric, conjunctiva clear. No ptosis. ENT: Ears normal, nares patent, oropharynx clear without exudates, moist mucous membranes. maxillary sinus tenderness. nasal congestion noted NECK: Trachea midline, full range of motion, supple. LUNGS: Breath sounds equal, clear to auscultation bilaterally to apexes, crackles noted to bilateral bases, no wheezes, no accessory muscle use. HEART: Regular rate and rhythm, S1, S2 without murmur, rub or gallop. ABDOMEN: Soft, nontender, nondistended, normoactive bowel sounds, no guarding, no rebound, no hepatosplenomegaly, no masses. EXTREMITIES: 2+ pulses, warm, well-perfused, no edema. NEUROLOGICAL: Cranial nerves II through XII grossly intact. Normal speech, gait not observed. PSYCH: Normal mood, normal affect. SKIN: Warm, dry, normal turgor, no rashes or lesions noted Laboratory Results - last 24 hr 01/09/17 01/10/17 01/10/17 08:00 07:56 07:56 WBC 5.2 RBC 3.85 L Hgb 11.1 L Hct 35.7 MCV 92.7 MCHC 31.2 L RDW 13.5 Plt Count 234 MPV 7.6 Neutrophils % 54.3 Lymphocytes % 20.6 Monocytes % 15.3 H Eosinophils % 9.1 H Basophils % 0.7 Sodium 133 L Potassium 4.1 Chloride 102 Carbon Dioxide 24 Anion Gap 7 L BUN 7 D Creatinine 0.6 D Creat Clearance w eGFR > 60 Random Glucose 100 Calcium 8.2 L Phosphorus 3.2 Magnesium 1.9 Total Bilirubin 0.7 D AST 109 H D ALT 183 H D Alkaline Phosphatase 502 H Total Protein 5.0 L Albumin 2.7 L Hepatitis C Antibody <0.1 Active Medications Generic Name Dose Route Start Last Admin Trade Name Freq PRN Reason Stop Dose Admin Fluticasone Propionate 2 spray 01/09/17 19:00 01/10/17 09:34 Flonase - NS 2 sprays DAILY MARINA Administration Heparin Sodium (Porcine) 5,000 unit 01/08/17 22:00 01/10/17 09:34 Heparin - SQ 5,000 unit BID MARINA Administration Vancomycin HCl 250 mls @ 166.667 mls/hr 01/09/17 11:00 01/10/17 10:03 Vancomycin (Pre-Docked) IVPB 166.667 mls/hr Q12H MARINA Administration Aztreonam 1 gm/ Dextrose 50 mls @ 100 mls/hr 01/09/17 11:00 01/10/17 09:35 IVPB 100 mls/hr Q8H-IV MARINA Administration Protocol Ibuprofen 400 mg 01/08/17 21:52 01/09/17 23:08 Motrin - PO 400 mg Q6H PRN Administration PAIN Lorazepam 0.5 mg 01/08/17 21:53 Ativan - PO HS PRN INSOMNIA Lorazepam 1 mg 01/10/17 22:00 Ativan - PO HS PRN INSOMNIA Oxymetazoline HCl 2 spray 01/09/17 18:48 Afrin - NS BID PRN NASAL CONGESTION Microbiology 01/08/17 14:08 Urine - Urine Clean Catch Urine Culture - Final NO GROWTH OBTAINED 01/08/17 14:20 Blood - Peripheral Venous Blood Culture - Preliminary NO GROWTH OBTAINED AFTER 24 HOURS, INCUBATION TO CONTINUE FOR 4 DAYS. 01/08/17 13:50 Blood - Peripheral Venous Blood Culture - Preliminary NO GROWTH OBTAINED AFTER 24 HOURS, INCUBATION TO CONTINUE FOR 4 DAYS. 01/08/17 17:50 Nasopharyngeal Swab Influenza Types A,B Antigen (AUSTYN) - Final , negative IMAGING CT scan of sinus: multifocal chronic/subacute sinusitis involving left frontal and left maxillary sinus, ? left maxilary sinus muccocele CT of Head: no mass, no ich noted, paranasal sinus inflammatory changes chest xray,no infilitrate no effusion noted mri of head, neck, and orbits w/contrast, trapped secretions of left maxillary sinus, opacifed left frontal sinus, no bone destruction ASSESSMENT/PLAN: 1) ID sepsis likely secondary to acute Sinusitis - culture and sensitivity report reviewed, + culture of klebsiella oxytoca, pt completed 8 days of bactrim, continue vancomycin and aztrenom - lactic acid wnl, no leukocytosisi noted pt afebrile, d/c IVF, crackles noted on exam - Blood Cultures-ntd from 01/06/17, blood cultures 01/08 NTD - case disucssed with Dr Shaw (ENT @ [facility]) made aware of mri results , agrees with current plan, requests follow up at his office within 24 hours after discharge. 2) neph hyponatremia - serum sodium trending upward, close monitoring, repeat BMP in AM - hold hctz 3)GI transanimitis - pt reports taking bactrim last dose 01/07, likely secondary to adverse reaction vs sepsis - abdominal ultrasound, liver and kidney cyst noted, CBD dilation noted. homegenous liver - benign abdominal exam, LFT's trending downward 3) card HTN - hold Norvas and valsartan due to labile b/p - b/p at goal - Hold HCTZ 12/22 Hyponatremia F/E/N -regular diet Prophylaxis - OOB - SCDs - heparin - incentive spirometer Code Status: Full Code Dispo: Admit for inpatient care, case [facility] ct scan and mri images placed on disc, given to in hand. pt to follow up with Dr Shaw, within 24 hours after discharge, d/c tomm after 24 hours of IV abx Visit type - Emergency Visit Emergency Visit: Yes ED Registration Date: 01/08/17 Care time: The patient presented to the Emergency Department on the above date and was hospitalized for further evaluation of their emergent condition. - New Patient This patient is new to me today: No - Critical Care Critical Care patient: No - Discharge Referral Referred to [facility] Med P.C.: No
--- NOTE | 2017-01-10 19:26 | CONSULT ---
Consult - text type - Consultation Consultation Note: ENT consult Inpatient admission for sinusitis complicated by hyponatremia. Has painless malodorous nasal discharge for over a month. An intranasal culture was positive for Klebsiella, which is sensitive to current abx IV. Feeling much better since began IV therapy. Had similar episodes of nasal discharge 3 times in the last 18 months. No response to removal of tooth #14. No response to recent treatment with oral abx. CT shows pansinusitis, but much worse in the left maxillary, ethmoid and frontal sinuses. MRI shows no intracranial or orbital involvement. Tmax of 100.9 yesterday. Previously had chills, which resolved. P/WDWN WM laying comfortably in bed Neck normal OC/OP normal Nose normal Imp: Chronic rhinosinusitis vs subacute sinusitis with apparent excellent response to current IV abx. Uncertain significance of dental pathology. Recommend ongoing IV abx with outpatient follow up
[2017-01-10] MEDS ORDERED: LORazepam 0.5 MG TABLET PO PRN (22:00)
[2017-01-10] MEDS: IBUPROFEN 400 MG TABLET (FP) PO PRN (22:23)
[2017-01-11] MEDS ORDERED: PT OWN MED DRAWER 7, Y5N ONE (01:36)
[2017-01-11] MEDS: AZTREONAM 1 GM in DEXTROSE 5%-WATER - 50 ML IVPB SCH (02:08)
[2017-01-11 05:32] VITALS: BP 105/49; PULSE 64; TEMP 99.3
[2017-01-11 08:32] LABS: WHITE BLOOD COUNT 5.7 K/mm3 (4.0-10.0)
[2017-01-11 08:33] LABS: MCH 30.6 pg (25.7-33.7); MCHC 33.1 g/dl (32.0-35.9); MEAN CELL VOLUME 92.5 fl (80-96); MEAN PLT VOLUME 7.8 fl (7.5-11.1); NEUTROPHILS 42.1 % (42.8-82.8); PLATELET COUNT 295 K/MM3 (134-434); RDW 13.6 % (11.9-15.9)
[2017-01-11 08:34] LABS: BASOPHIL 0.8 % (0-2.0); EOSINOPHIL 10.8 % (0-4.5)
[2017-01-11 08:43] LABS: ALK PHOS 522 U/L (32-92); ANION GAP 6 (8-16); BILIRUBIN,TOTAL 0.5 mg/dl (0.2-1.0); CALCIUM 8.6 mg/dl (8.4-10.2); CO2 26 mmol/L (22-28); CREATININE 0.7 mg/dl (0.6-1.3); GLUCOSE,RANDOM 96 mg/dl (74-106); SGOT/AST 131 U/L (10-42); SGPT/ALT 200 U/L (10-40); TOT PROT 5.7 g/dl (6.4-8.3)
--- NOTE | 2017-01-11 09:04 | DS ---
Physical Exam: SUBJECTIVE: Patient seen and examined, patient and laboratory throughout hallway steady gait is noted, denies any dizziness, reports feeling well and wants to go home OBJECTIVE: patient is a 71 y/o male with a past medical history of Hypertension , Chronic Sinusitis . Who presents to the emergency department sent in by PMD for abnormal lab value- Na, +Blood Cultures. Patient reports having severe chills and fever 99.5- 101.5. He reports being on Bactrim since 01/01 and had stopped taking HCTZ last Monday per his PMD due being hyponatremic. Patient's spouse reports patient's recent period of agitation which she attributes to his low sodium level. Patient denies dizziness, cough, SOB, CP, AP, N/V/D, constipation, dysuria. Patient reports using Saline Washes via Neti bottle over 1.5yrs for sinus congestion ER course was notable for: (1) Lactic Acid 2.15 fluid bolus given (2) Na 129 (3) LFTs > 6xNL Vital Signs Period Temp Pulse Resp BP Sys/Mak Pulse Ox Last 24 Hr 97.8 F-99.3 F 64-78 18-18 105-117/49-65 95-99 PHYSICAL EXAM GENERAL: The patient is awake, alert, and fully oriented, in no acute distress. HEAD: Normal with no signs of trauma. EYES: PERRL, extraocular movements intact, sclera anicteric, conjunctiva clear. No ptosis. ENT: Ears normal, nares patent, oropharynx clear without exudates, moist mucous membranes. maxillary sinus tenderness. nasal congestion noted NECK: Trachea midline, full range of motion, supple. LUNGS: Breath sounds equal, clear to auscultation bilaterally to apexes, crackles noted to bilateral bases, no wheezes, no accessory muscle use. HEART: Regular rate and rhythm, S1, S2 without murmur, rub or gallop. ABDOMEN: Soft, nontender, nondistended, normoactive bowel sounds, no guarding, no rebound, no hepatosplenomegaly, no masses. EXTREMITIES: 2+ pulses, warm, well-perfused, no edema. NEUROLOGICAL: Cranial nerves II through XII grossly intact. Normal speech, gait not observed. PSYCH: Normal mood, normal affect. SKIN: Warm, dry, normal turgor, no rashes or lesions noted LABS Laboratory Results - last 24 hr 01/10/17 01/10/17 01/11/17 07:56 21:00 07:00 WBC 5.2 5.7 RBC 3.85 L 4.08 Hgb 11.1 L 12.5 D Hct 35.7 37.7 MCV 92.7 92.5 MCHC 31.2 L 33.1 RDW 13.5 13.6 Plt Count 234 295 D MPV 7.6 7.8 Neutrophils % 54.3 42.1 L D Lymphocytes % 20.6 31.3 D Monocytes % 15.3 H 15.0 H Eosinophils % 9.1 H 10.8 H Basophils % 0.7 0.8 Sodium Potassium Chloride Carbon Dioxide Anion Gap BUN Creatinine Creat Clearance w eGFR Random Glucose Calcium Total Bilirubin AST ALT Alkaline Phosphatase Total Protein Albumin Vancomycin Trough 9.095 01/11/17 07:00 WBC RBC Hgb Hct MCV MCHC RDW Plt Count MPV Neutrophils % Lymphocytes % Monocytes % Eosinophils % Basophils % Sodium 132 L Potassium 4.2 Chloride 100 Carbon Dioxide 26 Anion Gap 6 L BUN 8 Creatinine 0.7 Creat Clearance w eGFR > 60 Random Glucose 96 Calcium 8.6 Total Bilirubin 0.5 D AST 131 H D ALT 200 H Alkaline Phosphatase 522 H Total Protein 5.7 L Albumin 3.0 L Vancomycin Trough Microbiology 01/08/17 17:50 Nasopharyngeal Swab Respiratory Virus Panel - Preliminary 01/08/17 14:20 Blood - Peripheral Venous Blood Culture - Final NO GROWTH AFTER 5 DAYS INCUBATION 01/08/17 13:50 Blood - Peripheral Venous Blood Culture - Final NO GROWTH AFTER 5 DAYS INCUBATION 01/08/17 14:08 Urine - Urine Clean Catch Urine Culture - Final NO GROWTH OBTAINED 01/08/17 17:50 Nasopharyngeal Swab Influenza Types A,B Antigen (AUSTYN) - Final , negative 01/08/17 17:50 Nasopharyngeal Swab - Final IMAGING CT scan of sinus: multifocal chronic/subacute sinusitis involving left frontal and left maxillary sinus, ? left maxilary sinus muccocele CT of Head: no mass, no ich noted, paranasal sinus inflammatory changes chest xray,no infilitrate no effusion noted mri of head, neck, and orbits w/contrast, trapped secretions of left maxillary sinus, opacifed left frontal sinus, no bone destruction HOSPITAL COURSE: patient was admitted from the emergency department for sepsis likely secondary to acute Sinusitis. culture and sensitivity report reviewed from sinus culture completed at [facility] by ENT + culture of klebsiella oxytoca, pt completed 8 days of bactrim. patient was placed on vancomycin and aztren throughout hospitalization. His lactic acid was noted to be elevated upon arrival to the emergency department. Patient was given IV hydration and lactic acid is wnl. No leukocytosis is noted pt afebrile. Blood Cultures are negative to date, from 01/06/17, blood cultures 01/08 negative to date. case disucssed with Dr Shaw (ENT @ [facility]) made aware of mri results, agrees with current plan, requests follow up at his office within 24 hours after discharge. patient was noted to be hyponatremic upon admission. Serum sodium to trend upward, hctz was held throughout hospitalization. patient was noted to have transaminitis likely secondary to Bactrim. Last dose of depression with . abdominal ultrasound, liver and kidney cyst noted, no CBD dilation noted. homegenous live. benign abdominal exam, LFT's trending downward, He does have a past medical history of hypertension. However Norvasc and valsartan was held due to labile blood pressure. PLAN: case discussed with Dr Shaw (patient's private ENT) at [facility], ct scan and mri images placed on disc, given to in hand. pt to follow up with Dr Shaw, within 24 hours after discharge. case discussed with Dr. Seugndo, patient's primary care physician. Patient to follow up with primary care physician within 5 days for repeatBMP. Return precautions reviewed i.e. chest pain, shortness of breath, dizziness fever or abdominal pain. Date of Admission:01/08/17 Date of Discharge: 01/11/17 Minutes to complete discharge: 45 Discharge Summary Reason For Visit: SINUSITIS & HYPONATREMIA Current Active Problems DVT prophylaxis (Acute) HTN (hypertension) (Acute) Hyponatremia (Acute) Lactic acidemia (Acute) Sinusitis (Acute) Transaminitis (Acute) Condition: Stable - Instructions Diet, Activity, Other Instructions: resume regular diet please follow up with Dr. Shaw, ENT ([facility]) within 48 hours-->please bring the cd -rom (MRI/CT scan) with you to the follow up appointment continue to hold norvasc, hctz, and valsartan continue flonase and asamanex please follow up with Dr Segundo, your primary care physician within 1 week please keep a daily log of your blood pressure and bring log with you to your follow appointment with Dr Segundo if chest pain, shortness of breath, or dizziness develops please return to the emergency department Referrals: Nando Segundo MD [Primary Care Provider] - Won Perez MD [Staff Physician] - Disposition: HOME - Home Medications Comprehensive Discharge Medication List: Ambulatory Orders Amlodipine Besylate 5 mg PO DAILY tablet 01/06/17 Mometasone Furoate [Asmanex] 1 puff IH DAILY inhaler 01/06/17 Hydrochlorothiazide [Hctz -] 12.5 mg PO DAILY 01/08/17 Lorazepam [Ativan] 1 mg PO HS PRN 01/08/17 Valsartan [Diovan] 320 mg PO DAILY 01/08/17 This patient is new to me today: No Emergency Visit: Yes ED Registration Date: 01/08/17 Care time: The patient presented to the Emergency Department on the above date and was hospitalized for further evaluation of their emergent condition. Critical Care patient: No - Discharge Referral Referred to [facility] Med P.C.: Yes Physician Referral: Nando Segundo MD (Int Med)
== END 2017-01-11 09:25 | disposition home or self-care (01) | DRG 872 ==
LOC: FER 13:19 → FM/S 17:27
PROVIDERS: ADMIT Internal Medicine; ATTEND Nurse Practitioner Family
DX: A41.9 Sepsis, unspecified organism (principal); E87.1 Hypo-osmolality and hyponatremia; J32.4 Chronic pansinusitis; R74.0 Nonspecific elevation of levels of transaminase and lactic acid dehydrogenase [LDH]; I10 Essential (primary) hypertension
CPT/HCPCS: 36415; 70450-TC; 70486-TC; 70543-TC; 71010-TC; 71020-TC; 76700-TC; 80053; 80076; 81003; 81015; 82436; 83605; 83735; 84100; 84133; 84300; 85025; 85610; 86140; 87040; 87086; 87254; 87804; 93005; 94010; 99283-25; G0480; J1644

== ENCOUNTER 2019-08-07 19:11 | Emergency (ER) | payer OTHER, MEDICARE ==
[2019-08-07 19:19] VITALS: BP 156/95; PULSE 75; TEMP 97.6; BMI 24.3
[2019-08-07 20:16] LABS: BASO % 0.7 % (0-2.0); EOS % 6.2 % (0-4.5); HEMATOCRIT 42.7 % (35.4-49); HEMOGLOBIN 14.6 GM/dl (11.7-16.9); LYMPH % 29.3 % (8-40); MCH 32.7 pg (25.7-33.7); MCHC 34.2 g/dl (32.0-35.9); MEAN CELL VOLUME 95.5 fl (80-96); MEAN PLT VOLUME 8.3 fl (7.5-11.1); MONO % 9.2 % (3.8-10.2); NEUT % 54.6 % (42.8-82.8); PLATELET COUNT 250 K/MM3 (134-434); RBC 4.47 M/mm3 (4.00-5.60); RDW 13.2 % (11.9-15.9); WHITE BLOOD COUNT 5.4 K/mm3 (4.0-10.8)
[2019-08-07 20:19] LABS: INR 1.01 (0.82-1.09); PROTHROMBIN TIME (PATIENT) 11.3 SEC (10.2-13.0)
[2019-08-07 20:36] LABS: ALBUMIN 4.6 g/dl (3.4-5.0); CALCIUM 9.5 mg/dl (8.5-10); CREATININE 0.7 mg/dl (0.55-1.3); POTASSIUM 4.1 mmol/L (3.5-5.1); TOT PROT 7.2 g/dl (6.4-8.2)
--- NOTE | 2019-08-08 00:39 | PDOC ---
Documentation entered by Sebastian Landaverde SCRIBE, acting as scribe for Lori Cook MD. Lori Cook MD: This documentation has been prepared by the Saima moreno Xhesika, SCRIBE, under my direction and personally reviewed by me in its entirety. I confirm that the documentation accurately reflects all work, treatment, procedures, and medical decision making performed by me. History of Present Illness - General Chief Complaint: Chest Pain Stated Complaint: CHEST PRESSURE/INDIGESTION History Source: Patient Exam Limitations: No Limitations - History of Present Illness Initial Comments: 08/07/19 20:38 The patient is a 73 year old male with a significant PMH of HTN (compliant with medication) who presents to the emergency department with chest pressure and irregular heartbeat since 6pm. The patient states he was sitting at his desk at the sudden onset of his symptoms. Patient states his symptoms felt like a fluttering sensation that is associated with indigestion and alleviated with burping. Patient notes he measured his BP, felt an irregular heartbeat and his BP measured 166-186 systolic. Patient states he went for a 3 mile run today. Patient notes he had a stress test on 02/05 with his solar maintenance technician Dr. Mccrary that was normal. Patient notes family history of HTN. The patient denies chest pain, shortness of breath, leg swelling, headache and dizziness. Denies fever, chills, cough, nausea, vomiting, diarrhea and constipation. Denies dysuria, frequency, urgency and hematuria. Allergies: Ciprofloxacin, Ciprofloxacin HCL, shante, etc PCP: Nando Langford Sheet Combining Operator: Nelson [facility] Past History - Past Medical History Allergies/Adverse Reactions: Allergies Allergy/AdvReac Type Severity Reaction Status Date / Time ciprofloxacin [From Cipro] Allergy Rash Verified 01/08/17 13:20 ciprofloxacin HCl Allergy Rash Verified 01/08/17 13:20 [From Cipro] shante Allergy Verified 01/08/17 13:20 poison joe extract Allergy Verified 01/08/17 13:20 Quinolones Allergy Verified 01/08/17 13:20 clarithromycin AdvReac Severe transaminit Unverified 03/13/17 12:19 is gingo fruit Allergy Uncoded 01/08/17 13:20 HTN: Yes - Suicide/Smoking/Psychosocial Hx Smoking History: Never smoked Hx Alcohol Use: No Drug/Substance Use Hx: No Substance Use Type: None Hx Substance Use Treatment: No Review of Systems - Review of Systems Able to Perform ROS?: Yes Comments:: 08/07/19 20:39 GENERAL/CONSTITUTIONAL: No fever or chills. No weakness. HEAD, EYES, EARS, NOSE AND THROAT: No change in vision. No ear pain or discharge. No sore throat. CARDIOVASCULAR: (+) chest pressure. (+) irregular heartbeat. No chest pain or shortness of breath. RESPIRATORY: No cough, wheezing, or hemoptysis. GASTROINTESTINAL: No nausea, vomiting, diarrhea or constipation. GENITOURINARY: No dysuria, frequency, or change in urination. MUSCULOSKELETAL: No joint or muscle swelling or pain. No neck or back pain. SKIN: No rash NEUROLOGIC: No headache, vertigo, loss of consciousness, or change in strength/ sensation. ENDOCRINE: No increased thirst. No abnormal weight change. HEMATOLOGIC/LYMPHATIC: No anemia, easy bleeding, or history of blood clots. ALLERGIC/IMMUNOLOGIC: No hives or skin allergy. *Physical Exam - Vital Signs Last Vital Signs Temp Pulse Resp BP Pulse Ox 97.6 F 75 14 156/95 100 08/07/19 19:14 08/07/19 19:14 08/07/19 19:14 08/07/19 19:14 08/07/19 19:14 - Physical Exam Comments: 08/07/19 20:39 GENERAL: Awake, alert, and fully oriented, in no acute distress HEAD: No signs of trauma EYES: PERRLA, EOMI, sclera anicteric, conjunctiva clear ENT: Auricles normal inspection, hearing grossly normal, nares patent, oropharynx clear without exudates. Moist mucosa NECK: Normal ROM, supple, no lymphadenopathy, JVD, or masses LUNGS: Breath sounds equal, clear to auscultation bilaterally. No wheezes, and no crackles HEART: Regular rate and rhythm, normal S1 and S2, no murmurs, rubs or gallops ABDOMEN: Soft, nontender, normoactive bowel sounds. No guarding, no rebound. No masses EXTREMITIES: Normal range of motion, no edema. No clubbing or cyanosis. No cords, erythema, or tenderness NEUROLOGICAL: Cranial nerves II through XII grossly intact. Normal speech, normal gait SKIN: Warm, Dry, normal turgor, no rashes or lesions noted. ED Treatment Course - LABORATORY CBC & Chemistry Diagram: 08/07/19 20:08 08/07/19 20:08 - ADDITIONAL ORDERS Additional order review: Laboratory Results 08/07/19 08/07/19 08/07/19 20:25 20:08 20:08 PT with INR 11.3 INR 1.01 Sodium 137 Potassium 4.1 Chloride 100 Carbon Dioxide 28 Anion Gap 9 BUN 16.0 Creatinine 0.7 Est GFR (CKD-EPI)AfAm 106.99 Est GFR (CKD-EPI)NonAf 92.31 Random Glucose 94 Calcium 9.5 Total Bilirubin 1.0 AST 30 ALT 17 Alkaline Phosphatase 46 Creatine Kinase 113 Troponin I < 0.03 Total Protein 7.2 Albumin 4.6 08/07/19 20:08 RBC 4.47 MCV 95.5 MCHC 34.2 RDW 13.2 MPV 8.3 Neutrophils % 54.6 Lymphocytes % 29.3 Monocytes % 9.2 Eosinophils % 6.2 H Basophils % 0.7 Medical Decision Making - Medical Decision Making As noted above, this 73-year-old man with a history of hypertension but otherwise healthy presents with 1 day history of palpitations. He describes no other symptoms of shortness of breath/lightheadedness/chest pain. He has had no recent dietary indiscretion with caffeine or other stimulants. Exam as noted. Twelve-lead electrocardiogram performed and interpreted by me: Normal sinus rhythm at 72 bpm; there is occasional unifocal PVCs and occasional PACs without multiple beats. No acute ST or T-wave abnormalities seen. Intervals and waveforms are otherwise normal. Laboratory evaluation including CBC, chemistry profile, troponin are all within normal limits. Patient will be discharged with advice to follow-up with his solar maintenance technician in the next 48 hours. The patient's is also followed by cardiology: [facility] cardiology service; she just had a pacemaker implanted. Patient states that he will either follow up with his previous solar maintenance technician at [facility] or follow-up with his 's solar maintenance technician at [facility]. He should return to the emergency room if he has persistent, severe palpitations or experiences chest pain/lightheadedness/shortness of breath *DC/Admit/Observation/Transfer Diagnosis at time of Disposition: Palpitations - Discharge Dispostion Disposition: HOME Condition at time of disposition: Stable - Referrals - Patient Instructions Printed Discharge Instructions: Arrhythmias Additional Instructions: Continue medications as prescribed Call solar maintenance technician tomorrow for followup as discussed Return to ER if you have chest pain, shortness of breath, persistent severe palitations - Post Discharge Activity
--- NOTE | 2019-08-08 14:10 | EKG ---
Test Reason : Blood Pressure : / mmHG Vent. Rate : 075 BPM Atrial Rate : 075 BPM P-R Int : 176 ms QRS Dur : 092 ms QT Int : 408 ms P-R-T Axes : 080 -12 048 degrees QTc Int : 455 ms SINUS RHYTHM WITH OCCASIONAL PREMATURE VENTRICULAR COMPLEXES AND PREMATURE ATRIAL COMPLEXES OTHERWISE NORMAL ECG WHEN COMPARED WITH ECG OF 08-JAN-2017 14:17, PREMATURE VENTRICULAR COMPLEXES ARE NOW PRESENT PREMATURE ATRIAL COMPLEXES ARE NOW PRESENT NONSPECIFIC T WAVE ABNORMALITY NOW EVIDENT IN LATERAL LEADS Confirmed by HYUN MA MD ([id number]) on 08/08/2019 2:09:43 PM Referred By: MD SHELBY Confirmed By:HUYN MA MD
== END 2019-08-07 21:12 | disposition home or self-care (01) ==
LOC: FER 19:11
DX: R00.2 Palpitations (principal); I10 Essential (primary) hypertension; Z91.14 Patient's other noncompliance with medication regimen
CPT/HCPCS: 36415; 80053; 82550; 84484; 85025; 85610; 93005; 99285-25

== ENCOUNTER 2019-12-24 10:54 | Inpatient (IN) | payer OTHER, MEDICARE ==
[2019-12-24] MEDS ORDERED: SODIUM CHLORIDE 1,000 ML IV SCH (11:00)
--- NOTE | 2019-12-24 11:14 | PDOC ---
History of Present Illness - General Stated Complaint: DIFFICULTY WALKING,SLURRED SPEECH Time Seen by Provider: 12/24/19 10:56 - History of Present Illness Initial Comments: Zenon Messina is a 74yo man with a PMH of HTN, aortic aneurysm (reports 4.3cm ) who presented to the ED due to difficulty walking, slurred speech, and confusion starting around 9am. His states that he was unable to walk in a straight line and was falling over the the side and bumping into things as though he was drunk. She also noted slurring speech and states that he "did not make sense" when he was talking. For example, she asked him to come look at a picture, and he responded "there is a picture upstairs." The symptoms lasted about an hour. His notes that she was feeling "off" last week and thought that his symptoms were likely due to a viral infection, but their children strongly encouraged them to come to the hosptail for evaluation. Currently, Mr Messina has no complaints. His states that his symptoms appear to have resolved at this point. NIH Stroke Scale - Last Known Well Date/Time & Onset Date Last Known Well: 12/24/19 Time Last Known Well: 09:00 - Initial Evaluation Level of consciousness: Alert Ask patient the month and their age: Answers both correctly Ask patient to open & close eyes; make fist and let go: Obeys both correctly Best gaze (horizontal eye movement): Normal Visual field testing: No visual field loss Facial paresis (Show teeth/raise eyebrows/close eyes tight): Normal symmetrical movement Motor Function: Left Arm: Normal Motor Function: Right Arm: Normal (extends arm 90 (or 45) degrees for 10 seconds without drift Motor Function: Left Leg: Normal (extends leg 30 degrees for 5 seconds without drift) Motor Function: Right Leg: Normal (extends leg 30 degrees for 5 seconds without drift) Limb Ataxia: No ataxia Sensory(Use pinprick test arms,legs,trunk,face/side to side): Normal Best language (Describe picture, name items, read sentences): No Aphasia Dysarthria (read several words): Normal articulation Extinction and Inattention: No abnormality - Total Score NIH Stroke Scale Score: 0 Past History - Past Medical History Allergies/Adverse Reactions: Allergies Allergy/AdvReac Type Severity Reaction Status Date / Time ciprofloxacin [From Cipro] Allergy Rash Verified 12/24/19 11:29 ciprofloxacin HCl Allergy Rash Verified 12/24/19 11:29 [From Cipro] shante Allergy Verified 12/24/19 11:29 poison joe extract Allergy Verified 12/24/19 11:29 Quinolones Allergy Verified 12/24/19 11:29 clarithromycin AdvReac Severe transaminit Verified 12/24/19 11:29 is gingo fruit Allergy Uncoded 01/08/17 13:20 Home Medications: Ambulatory Orders Candesartan Cilexetil [Atacand] 32 mg PO DAILY 12/24/19 Magnesium Oxide [Magnesium] 400 mg PO DAILY 12/24/19 Metoprolol Succinate [Toprol Xl] 50 mg PO DAILY 12/24/19 COPD: No HTN: Yes Hypercholesterolemia: Yes - Psycho Social/Smoking Cessation Hx Smoking History: Never smoked Have you smoked in the past 12 months: No Number of Cigarettes Smoked Daily: 0 Hx Alcohol Use: No Drug/Substance Use Hx: No Substance Use Type: None Hx Substance Use Treatment: No Review of Systems - Review of Systems Comments:: General: No fevers, no chills, no weight or appetite change, no malaise HEENT: No changes in vision, no changes in hearing, no congestion, no sore throat CV: No chest pain, no palpitations, no LE edema Pulm: No SOB, no cough, no wheezing GI: No nausea or vomiting, no change in bowel habits, no melena : No frequency, no urgency, no dysuria Musc: No back pain, no joint swelling, no recent injury Skin: No rash, no lesions, no erythema Endo: No excessive thirst, no heat/cold intolerance Heme: No unusual bruising or bleeding, no swollen glands Neuro: See HPI Vasc: No claudication Psych: No recent change in mood, no SI or HI *Physical Exam - Vital Signs Last Vital Signs Temp Pulse Resp BP Pulse Ox 97.7 F 18 139/79 97 12/24/19 11:00 12/24/19 11:00 12/24/19 11:00 12/24/19 11:00 - Physical Exam General: Comfortable, no acute distress HEENT: Atraumatic, PERRL, EOMI, MMM, voice normal, normal neck ROM Cards: RRR, no murmur appreciated Pulm: Comfortable on room air, clear to auscultation bilaterally Abd: Soft, nontender, nondistended Ext: Atraumatic. No LE edema. ROM intact. Strength 5/5 and equal bilaterally. WWP Skin: Normal color, no rashes or lesions Neuro: A&Ox3, CN grossly intact, normal speech, motor/sensory grossly intact and symmetric. Stroke scale 0 Psych: Mood appropriate to situation ED Treatment Course - LABORATORY CBC & Chemistry Diagram: 12/24/19 11:20 12/24/19 11:20 Medical Decision Making - Medical Decision Making 12/24/19 11:07 Zenon Messina is a 74yo man with a PMH of HTN, aortic aneurysm (reports 4.3cm ) who presented to the ED due to difficulty walking, slurred speech, and confusion starting around 9am. Symptoms lasted approximately one hour and have since resolved. - Concerning for TIA v CVA, more likely TIA given duration - Initial stroke scale 0 - Given report of 1hr of ataxia, slurred speech, and "confusion", stroke workup ordered - Taken for CT 12/24/19 11:27 - Non-contrast head CT negative - Consult to Dr Quiroga placed, waiting for call back 12/24/19 11:39 - Spoke to Dr Quiroga. Recommending to give aspirin, admit to telemetry - ASA ordered, but pt reports that he took 3x ASA 81 today. Will not give additional aspirin - Plan to admit to telemetry pending labs 12/24/19 13:26 - Labs without any significant abnormalities - Pt signed out to admitting team by Dr Alvarez. Will admit for additional workup and management. Discussed with Dr Kim Senior PGY2 Discharge - Discharge Information Problems reviewed: Yes Clinical Impression/Diagnosis: Transient ischemic attack Condition: Stable - Admission Yes - Follow up/Referral - Patient Discharge Instructions - Post Discharge Activity
[2019-12-24] MEDS ORDERED: ASPIRIN 325 MG TABLET PO ONE (11:33)
--- NOTE | 2019-12-24 11:36 | CON.NEURO ---
Consult Consult Specialty:: [facility] Referred by:: ER - History of Present Illness History of Present Illness: 74 years old woman with pmH CAD OA hTN was seen over [place] apst few days with walking funny veering to [place] no fall no travel no heda traum an op visual symtoms - History Source History Provided By: Patient Limitations to Obtaining History: No Limitations - Alcohol/Substance Use Hx Alcohol Use: No - Smoking History Smoking history: Never smoked Have you smoked in the past 12 months: No Aproximately how many cigarettes per day: 0 If you are a former smoker, when did you quit?: at the age of 18 Home Medications - Allergies Allergies/Adverse Reactions: Allergies Allergy/AdvReac Type Severity Reaction Status Date / Time ciprofloxacin [From Cipro] Allergy Rash Verified 12/24/19 11:29 ciprofloxacin HCl Allergy Rash Verified 12/24/19 11:29 [From Cipro] shante Allergy Verified 12/24/19 11:29 poison joe extract Allergy Verified 12/24/19 11:29 Quinolones Allergy Verified 12/24/19 11:29 clarithromycin AdvReac Severe transaminit Verified 12/24/19 11:29 is gingo fruit Allergy Uncoded 01/08/17 13:20 - Home Medications Home Medications: Ambulatory Orders Candesartan Cilexetil [Atacand] 32 mg PO DAILY 12/24/19 Magnesium Oxide [Magnesium] 400 mg PO DAILY 12/24/19 Metoprolol Succinate [Toprol Xl] 50 mg PO DAILY 12/24/19 Family Medical History Family History: Unremarkable Review of Systems - Review of Systems Constitutional: reports: No Symptoms Eyes: reports: No Symptoms Neurological: reports: Dizziness, Headache, Incoordination, Numbness Physical Exam-Neuro Vital Signs: Vital Signs Temperature 97.7 F 12/24/19 11:00 Pulse Rate 65 12/24/19 10:56 Respiratory Rate 18 12/24/19 11:00 Blood Pressure 139/79 12/24/19 11:00 O2 Sat by Pulse Oximetry (%) 97 12/24/19 11:00 Constitutional: Yes: Well Nourished Neck: Yes: WNL Cardiovascular: Yes: WNL - Neuro Exam Level Of Consciousness: Yes: Oriented to Person, Oriented to Place, Oriented to Time Eyes: Yes: PERRLA Speech: WNL Dominant Hand: Right Cranial Nerves II-XII Intact: Yes Gag: Present DTR's: 1+ Left Bicep, 1+ Right Bicep, 1+ Left Tricep, 1+ Right Tricep Response to light touch: Normal Response to pain prick: Normal Response to temperature: Normal Motor Strength: 3/5: Left Arm, Right Arm, Right Leg, Left Leg Gait: Deferred Imaging - Results Cat Scan: Image Reviewed MRI: Image Reviewed Problem List - Problems (1) Transient ischemic attack Code(s): G45.9 - TRANSIENT CEREBRAL ISCHEMIC ATTACK, UNSPECIFIED Assessment/Plan Rule out Cardiac arrythmia might need anticoagulation baby ASA Statin PT eval fall precaution s Thank you Ines Quiroga MD
[2019-12-24 11:52] LABS: BASO % 0.7 % (0-2.0); EOS % 7.3 % (0-4.5); HEMATOCRIT 38.8 % (35.4-49); HEMOGLOBIN 12.9 GM/dl (11.7-16.9); MCH 32.2 pg (25.7-33.7); MCHC 33.4 g/dl (32.0-35.9); MEAN CELL VOLUME 96.4 fl (80-96); MEAN PLT VOLUME 8.5 fl (7.5-11.1); MONO % 13.6 % (3.8-10.2); NEUT % 48.4 % (42.8-82.8); PLATELET COUNT 193 K/MM3 (134-434); RBC 4.03 M/mm3 (4.00-5.60); RDW 13.4 % (11.9-15.9)
[2019-12-24 12:02] LABS: ACTIVATED PTT 27.6 SECONDS (25.2-36.5)
[2019-12-24 12:07] LABS: ALBUMIN 3.6 g/dl (3.4-5.0); BILIRUBIN,TOTAL 0.9 mg/dl (0.2-1); CALCIUM 8.4 mg/dl (8.5-10); CREATININE 0.7 mg/dl (0.55-1.3); INR 1.09 (0.82-1.09); POTASSIUM 3.9 mmol/L (3.5-5.1); PROTHROMBIN TIME (PATIENT) 12.2 SEC (10.2-13.0); TOT PROT 5.7 g/dl (6.4-8.2)
[2019-12-24 12:13] LABS: CHOLESTEROL 183 mg/dl (50-200); HDL CHOLESTEROL 67 mg/dl (40-60); TRIGLYCERIDES 37 mg/dl (0-150)
[2019-12-24 12:23] LABS: LDL CHOLESTEROL (ONLY SJRH) 109 mg/dL (5-100)
--- NOTE | 2019-12-24 12:34 | PDOC ---
Attending Attestation - Resident Resident Name: Heather Senior - ED Attending Attestation I have performed the following: I have examined & evaluated the patient, The case was reviewed & discussed with the resident, I agree w/resident's findings & plan, Exceptions are as noted - HPI HPI: 12/24/19 12:33 74 years old with past medical history significant for hypertension aortic aneurysm presents to the ED with 9 AM onset of difficulty walking slurred speech and confusion. Symptoms lasted approximately 1 hour. Patiently currently asymptomatic. Brought to the emergency department code barbosa activated stat head CT ordered. - Physicial Exam PE: 12/24/19 12:34 Vitals: Triage Vital signs reviewed General Appearance: No acute distress, well nourished well developed, Head: Atraumatic, Neuro: AOX3; cranial Nerves 2-12 grossly intact, strength intact to all extremities, sensation intact to all extremities, gait normal Psych: Normal mood, normal affect - Critical Care Time Total Critical Care Time: 35 Critical Care Statement: The care of this patient involved high complexity decision making to prevent further life threatening deterioration of the patient 's condition and/or to evaluate & treat vital organ system(s) failure or risk of failure. - Medical Decision Making 12/24/19 12:34 NIHSS score 0 History examination consistent with TIA Case discussed with neurology recommends full dose aspirin which patient ready took this morning and admission for further management 12/24/19 17:[address] demonstrated no acute bleed or large MCA sign Interpreted by me EKG demonstrates sinus rhythm no ST elevations or T wave inversions no evidence of A. fib Interpreted by me Chest x-ray demonstrates no acute pathology Interpreted by me head CT
--- NOTE | 2019-12-24 15:18 | ECHO ---
Name: ISHAN KIRBY Exam:Adult Echocardiogram Study Date: 12/24/2019 02:22 PM Age: 74 yrs Reason For Study: CVA Height: 68 in Weight: 150 lb BSA: 1.8 m2 MMode/2D Measurements & Calculations IVSd: 1.2 cm Ao root diam: 3.3 cm LVIDd: 4.2 cm LA dimension: 3.9 cm LVIDs: 2.9 cm ACS: 2.0 cm LVPWd: 1.1 cm EDV(Teich): 79.2 ml LVOT diam: 2.3 cm ESV(Teich): 31.5 ml Doppler Measurements & Calculations MV E max petr: 51.9 cm/sec MV A max petr: 101.4 cm/sec MV dec slope: 194.1 cm/sec2 MV E/A: 0.51 Ao V2 max: 102.0 cm/sec LV V1 max P.7 mmHg Ao max P.2 mmHg LV V1 mean P.4 mmHg Ao V2 mean: 69.3 cm/sec LV V1 max: 81.6 cm/sec Ao mean P.2 mmHg LV V1 mean: 56.0 cm/sec Ao V2 VTI: 22.5 cm LV V1 VTI: 20.7 cm DAYAN(I,D): 3.9 cm2 DAYAN(V,D): 3.3 cm2 MR max petr: 447.5 cm/sec SV(LVOT): 86.5 ml MR max P.1 mmHg TR max petr: 227.6 cm/sec PA V2 max: 60.2 cm/sec TR max P.7 mmHg PA max P.4 mmHg PI end-d petr: 69.4 cm/sec Pulm Sys Petr: 61.4 cm/sec Pulm Mak Petr: 38.0 cm/sec Pulm S/D: 1.6 Procedure A complete two-dimensional transthoracic echocardiogram was performed (2D, M-mode, Doppler and color flow Doppler). Left Ventricle The left ventricular size, thickness and function are normal. Ejection Fraction = 65%. E/A reversal c onsistent with but not diagnostic of poor LV compliance. The left ventricular wall motion is normal. Right Ventricle The right ventricle is normal in size and function. Atria Normal left and right atrial size and function. Mitral Valve The mitral valve is normal in structure and function. There is trace to mild mitral regurgitation. Tricuspid Valve The tricuspid valve is normal in structure and function. There is mild tricuspid regurgitation. Right ventricular systolic pressure is 25 mmhg. Assuming the RA pressure is 5 mmHg. Aortic Valve There is mild aortic valve thickening. Pulmonic Valve The pulmonic valve is normal in structure and function. Trace to mild pulmonic valvular regurgitation . Great Vessels The aortic root is normal size. Pericardium/Pleura There is no pericardial effusion. There is no pleural effusion. Interpretation Summary The left ventricular size, thickness and function are normal Ejection Fraction = 65%. There is trace to mild mitral regurgitation. There is mild tricuspid regurgitation. Right ventricular systolic pressure is 25 mmhg. Assuming the RA pressure is 5 mmHg Trace to mild pulmonic valvular regurgitation. MD Ang Pickett 12/24/2019 03:18 PM
--- NOTE | 2019-12-24 15:21 | HP ---
CHIEF COMPLAINT: Difficulty walking, slurred speech x 1 hour PCP: Avelino Rodney Cardiology: Avelino Fitzgerald HISTORY OF PRESENT ILLNESS: 74 year-old male with a PMH of HTN, HLD, aortic aneurysm, and chronic sinusitis , who presented to the ED due to difficulty walking, slurred speech, and confusion starting around 9am. His states that he was unable to walk in a straight line and was falling over the the side and bumping into things as though he was drunk. She also noted slurring speech and states that he "did not make sense" when he was talking. For example, she asked him to come look at a picture, and he responded "there is a picture upstairs." The symptoms lasted about an hour. Two days ago patient had a similar episode of unsteady gait, walking into [employer] and furniture. It lasted about 30 minutes and self-resolved. He thought he might have a virus because of a sick family contact, and did do anything about it. When he had the second epidose today he was persuaded to come to the ED. ER course was notable for: (1) Troponin neg x 1 (2) Na 130 (3) Recent Travel: No PAST MEDICAL HISTORY: Hypertension Hyperlipidemia Aortic aneurysm Chronic sinusitis PAST SURGICAL HISTORY: Radical prostatectomy 2006 Right ruptured anterior tendon repair Social History: Smoking: Former cigarette/cigar > 40 yrs Alcohol: Socially- wine with dinner/occasions Drugs: Former- Marijuana use early 20s Family History: Mother: HTN, Colon Ca, age 95 Father: Chronic Sinus, HTN, Lymphoma, age 83 Grandfather: Stroke Allergies ciprofloxacin [From Cipro] Allergy (Verified 12/24/19 11:29) Rash ciprofloxacin HCl [From Cipro] Allergy (Verified 12/24/19 11:29) Rash shante Allergy (Verified 12/24/19 11:29) poison joe extract Allergy (Verified 12/24/19 11:29) Quinolones Allergy (Verified 12/24/19 11:29) clarithromycin Adverse Reaction (Severe, Verified 12/24/19 11:29) transaminitis gingo fruit Allergy (Uncoded 01/08/17 13:20) HOME MEDICATIONS: Home Medications Medication Instructions Recorded Candesartan Cilexetil [Atacand] 32 mg PO DAILY 12/24/19 Magnesium Oxide [Magnesium] 400 mg PO DAILY 12/24/19 Metoprolol Succinate [Toprol Xl] 50 mg PO DAILY 12/24/19 REVIEW OF SYSTEMS CONSTITUTIONAL: Absent: fever, chills, diaphoresis, generalized weakness, malaise, loss of appetite, weight change HEENT: Absent: rhinorrhea, nasal congestion, throat pain, throat swelling, difficulty swallowing, mouth swelling, ear pain, eye pain, visual changes CARDIOVASCULAR: Absent: chest pain, syncope, palpitations, irregular heart rate, lightheadedness , peripheral edema RESPIRATORY: Absent: cough, shortness of breath, dyspnea with exertion, orthopnea, wheezing, stridor, hemoptysis GASTROINTESTINAL: Absent: abdominal pain, abdominal distension, nausea, vomiting, diarrhea, constipation, melena, hematochezia GENITOURINARY: Absent: dysuria, frequency, urgency, hesitancy, hematuria, flank pain, genital pain MUSCULOSKELETAL: Absent: myalgia, arthralgia, joint swelling, back pain, neck pain SKIN: Absent: rash, itching, pallor HEMATOLOGIC/IMMUNOLOGIC: Absent: easy bleeding, easy bruising, lymphadenopathy, frequent infections ENDOCRINE: Absent: unexplained weight gain, unexplained weight loss, heat intolerance, cold intolerance NEUROLOGIC: +Unsteady gait, mental status changes Absent: headache, focal weakness or paresthesias, dizziness, unsteady gait, seizure, mental status changes, bladder or bowel incontinence PSYCHIATRIC: Absent: anxiety, depression, suicidal or homicidal ideation, hallucinations. PHYSICAL EXAMINATION Vital Signs - 24 hr 12/24/19 12/24/19 10:56 11:00 Temperature 97.7 F 97.7 F Pulse Rate 65 Respiratory 18 18 Rate Blood Pressure 139/79 Blood Pressure 139/79 [Left Arm] O2 Sat by Pulse 97 97 Oximetry (%) GENERAL: Awake, alert, and fully oriented, in no acute distress. HEAD: Normal with no signs of trauma. EYES: Pupils equal, round and reactive to light, extraocular movements intact, sclera anicteric, conjunctiva clear. No lid lag. EARS, NOSE, THROAT: Ears normal, nares patent, oropharynx clear without exudates. Moist mucous membranes. NECK: Normal range of motion, supple without lymphadenopathy, JVD, or masses. LUNGS: Breath sounds equal, clear to auscultation bilaterally. No wheezes, and no crackles. No accessory muscle use. HEART: Regular rate and rhythm, normal S1 and S2 without murmur, rub or gallop. ABDOMEN: Soft, nontender, not distended, normoactive bowel sounds, no guarding, no rebound, no masses. No hepatomegaly or splenomegaly. MUSCULOSKELETAL: Normal range of motion at all joints. No bony deformities or tenderness. No CVA tenderness. UPPER EXTREMITIES: 2+ pulses, warm, well-perfused. No cyanosis. No clubbing. No peripheral edema. LOWER EXTREMITIES: 2+ pulses, warm, well-perfused. No calf tenderness. No peripheral edema. NEUROLOGICAL: Cranial nerves II-XII intact. Normal speech. Normal gait. PSYCHIATRIC: Cooperative. Good eye contact. Appropriate mood and affect. SKIN: Warm, dry, normal turgor, no rashes or lesions noted, normal capillary refill. Laboratory Results - last 24 hr 12/24/19 12/24/19 12/24/19 11:20 11:20 11:20 WBC RBC Hgb Hct MCV MCH MCHC RDW Plt Count MPV Absolute Neuts (auto) Neutrophils % Lymphocytes % Monocytes % Eosinophils % Basophils % ESR PT with INR 12.2 INR 1.09 PTT (Actin FS) 27.6 Sodium 130 L Potassium 3.9 Chloride 100 Carbon Dioxide 24 Anion Gap 6 L BUN 21.0 H Creatinine 0.7 Est GFR (CKD-EPI)AfAm 106.24 Est GFR (CKD-EPI)NonAf 91.67 Random Glucose 88 Calcium 8.4 L Total Bilirubin 0.9 AST 27 ALT 15 Alkaline Phosphatase 36 L Creatine Kinase Troponin I Total Protein 5.7 L Albumin 3.6 Triglycerides 37 Cholesterol 183 Total LDL Cholesterol 109 H HDL Cholesterol 67 H Vitamin B12 Urine Color Urine Appearance Urine pH Urine Protein Urine Glucose (UA) Urine Ketones Urine Blood Urine Nitrite Urine Bilirubin Urine Urobilinogen Ur Leukocyte Esterase Blood Type Antibody Screen 12/24/19 12/24/19 12/24/19 11:20 11:20 11:20 WBC 4.0 RBC 4.03 Hgb 12.9 Hct 38.8 MCV 96.4 H MCH 32.2 MCHC 33.4 RDW 13.4 Plt Count 193 D MPV 8.5 Absolute Neuts (auto) 2.0 Neutrophils % 48.4 Lymphocytes % 30.0 Monocytes % 13.6 H Eosinophils % 7.3 H Basophils % 0.7 ESR PT with INR INR PTT (Actin FS) Sodium Potassium Chloride Carbon Dioxide Anion Gap BUN Creatinine Est GFR (CKD-EPI)AfAm Est GFR (CKD-EPI)NonAf Random Glucose Calcium Total Bilirubin AST ALT Alkaline Phosphatase Creatine Kinase Troponin I Total Protein Albumin Triglycerides Cholesterol Total LDL Cholesterol HDL Cholesterol Vitamin B12 Urine Color Urine Appearance Urine pH Urine Protein Urine Glucose (UA) Urine Ketones Urine Blood Urine Nitrite Urine Bilirubin Urine Urobilinogen Ur Leukocyte Esterase Blood Type A POSITIVE A POSITIVE Antibody Screen Negative 12/24/19 12/24/19 12/24/19 11:20 11:20 11:20 WBC RBC Hgb Hct MCV MCH MCHC RDW Plt Count MPV Absolute Neuts (auto) Neutrophils % Lymphocytes % Monocytes % Eosinophils % Basophils % ESR PT with INR INR PTT (Actin FS) Sodium Potassium Chloride Carbon Dioxide Anion Gap BUN Creatinine Est GFR (CKD-EPI)AfAm Est GFR (CKD-EPI)NonAf Random Glucose Calcium Total Bilirubin AST ALT Alkaline Phosphatase Creatine Kinase 96 Troponin I < 0.03 Total Protein Albumin Triglycerides Cholesterol Total LDL Cholesterol HDL Cholesterol Vitamin B12 350 Urine Color Urine Appearance Urine pH Urine Protein Urine Glucose (UA) Urine Ketones Urine Blood Urine Nitrite Urine Bilirubin Urine Urobilinogen Ur Leukocyte Esterase Blood Type Antibody Screen 12/24/19 12/24/19 11:20 11:40 WBC RBC Hgb Hct MCV MCH MCHC RDW Plt Count MPV Absolute Neuts (auto) Neutrophils % Lymphocytes % Monocytes % Eosinophils % Basophils % ESR 12 PT with INR INR PTT (Actin FS) Sodium Potassium Chloride Carbon Dioxide Anion Gap BUN Creatinine Est GFR (CKD-EPI)AfAm Est GFR (CKD-EPI)NonAf Random Glucose Calcium Total Bilirubin AST ALT Alkaline Phosphatase Creatine Kinase Troponin I Total Protein Albumin Triglycerides Cholesterol Total LDL Cholesterol HDL Cholesterol Vitamin B12 Urine Color Yellow Urine Appearance Clear Urine pH 7.0 Urine Protein Negative Urine Glucose (UA) Negative Urine Ketones Negative Urine Blood Negative Urine Nitrite Negative Urine Bilirubin Negative Urine Urobilinogen 0.2 Ur Leukocyte Esterase Negative Blood Type Antibody Screen ASSESSMENT/PLAN: 74 year-old male with a PMH of HTN, HLD, aortic aneurysm, and chronic sinusitis , admitted for TIA v. CVA, also with hyponatremia. TIA v. CVA --CT and CTA head no acute process --MRI brain: no acute intracranial pathology --troponin neg x 2, two pending --ECG: --telemetry monitoring --12/24 Echo: LV normal, EF 65%; RV normal; trace to mild MR; mild TR; trace to mild PI --US carotids: no significant stenosis --daily ASA 81mg, start high-dose statin --passed bedside swallow evaluation --neuro following Hyponatremia --symptoms may be attributable to a metabolic encephalopathy due to hyponatremia; previous episode of hyponatremia during 2017 admission; patient also states he had been on HCTZ in past for HTN but stopped due to hyponatremia --continue gentle IV fluids Aortic aneurysm --followed regularly by makeup editor Dr. Mccrary; was scheduled tomorrow for a repeat echo to assess aneurysm --cardiology consult placed FEN Fluids: NS@42mL/hr Electrolytes: replete as indicated Nutrition: regular DVT prophylaxis: subq heparin Physical therapy Dispo: continues to require inpatient care. Full code. Visit type - Emergency Visit Emergency Visit: Yes ED Registration Date: 12/24/19 Care time: The patient presented to the Emergency Department on the above date and was hospitalized for further evaluation of their emergent condition. - New Patient This patient is new to me today: Yes Date on this admission: 12/24/19 - Critical Care Critical Care patient: No
[2019-12-24 16:48] VITALS: BMI 22.6
[2019-12-24] MEDS: HEPARIN NA (PORCINE) 5,000 UNITS/ML 1ML VIAL SQ SCH (21:59)
[2019-12-24] MEDS: amLODIPine BESYLATE 5 MG TABLET (FP) PO SCH (21:59)
[2019-12-24] MEDS ORDERED: ATORVASTATIN CA 80 MG TABLET (FP) PO SCH (22:00)
[2019-12-24] MEDS ORDERED: IBUPROFEN 400 MG TABLET (FP) PO ONE ×2 (23:45→23:53)
[2019-12-25] MEDS: HEPARIN NA (PORCINE) 5,000 UNITS/ML 1ML VIAL SQ SCH (06:47)
[2019-12-25 07:52] LABS: ALBUMIN 3.5 g/dl (3.4-5.0); CALCIUM 8.4 mg/dl (8.5-10); CREATININE 0.7 mg/dl (0.55-1.3); MAGNESIUM 2.1 mg/dL (1.8-2.4); POTASSIUM 4.3 mmol/L (3.5-5.1); TOT PROT 5.6 g/dl (6.4-8.2)
[2019-12-25 07:58] LABS: BASO % 0.6 % (0-2.0); EOS % 8.4 % (0-4.5); HEMATOCRIT 40.7 % (35.4-49); HEMOGLOBIN 13.8 GM/dl (11.7-16.9); LYMPH % 35.4 % (8-40); MCH 32.2 pg (25.7-33.7); MEAN CELL VOLUME 94.9 fl (80-96); MEAN PLT VOLUME 8.9 fl (7.5-11.1); MONO % 11.2 % (3.8-10.2); NEUT % 44.4 % (42.8-82.8); PLATELET COUNT 198 K/MM3 (134-434); RBC 4.28 M/mm3 (4.00-5.60); RDW 13.1 % (11.9-15.9)
--- NOTE | 2019-12-25 09:05 | DS ---
Physical Exam: SUBJECTIVE: Patient seen and examined OBJECTIVE: Vital Signs Period Temp Pulse Resp BP Sys/Mak Pulse Ox Last 24 Hr 97.7 F-98.6 F 55-70 18-18 111-154/57-93 97-99 PHYSICAL EXAM GENERAL: The patient is awake, alert, and fully oriented, in no acute distress. ENT: Ears normal, nares patent, oropharynx clear without exudates, moist mucous membranes. LUNGS: Breath sounds equal, clear to auscultation bilaterally, no wheezes, no crackles, no accessory muscle use. HEART: Regular rate and rhythm, S1, S2 without murmur, rub or gallop. ABDOMEN: Soft, nontender, nondistended, normoactive bowel sounds, no guarding, no rebound, no hepatosplenomegaly, no masses. EXTREMITIES: 2+ pulses, warm, well-perfused, no edema. NEUROLOGICAL: Cranial nerves II through XII grossly intact. Normal speech, gait not observed. PSYCH: Normal mood, normal affect. SKIN: Warm, dry, normal turgor, no rashes or lesions noted. LABS Laboratory Results - last 24 hr 12/24/19 12/24/19 12/24/19 11:20 11:20 11:20 WBC RBC Hgb Hct MCV MCH MCHC RDW Plt Count MPV Absolute Neuts (auto) Neutrophils % Lymphocytes % Monocytes % Eosinophils % Basophils % ESR PT with INR 12.2 INR 1.09 PTT (Actin FS) 27.6 Sodium 130 L Potassium 3.9 Chloride 100 Carbon Dioxide 24 Anion Gap 6 L BUN 21.0 H Creatinine 0.7 Est GFR (CKD-EPI)AfAm 106.24 Est GFR (CKD-EPI)NonAf 91.67 Random Glucose 88 Calcium 8.4 L Magnesium Total Bilirubin 0.9 AST 27 ALT 15 Alkaline Phosphatase 36 L Creatine Kinase Troponin I Total Protein 5.7 L Albumin 3.6 Triglycerides 37 Cholesterol 183 Total LDL Cholesterol 109 H HDL Cholesterol 67 H Vitamin B12 Urine Color Urine Appearance Urine pH Urine Protein Urine Glucose (UA) Urine Ketones Urine Blood Urine Nitrite Urine Bilirubin Urine Urobilinogen Ur Leukocyte Esterase Blood Type Antibody Screen 12/24/19 12/24/19 12/24/19 11:20 11:20 11:20 WBC 4.0 RBC 4.03 Hgb 12.9 Hct 38.8 MCV 96.4 H MCH 32.2 MCHC 33.4 RDW 13.4 Plt Count 193 D MPV 8.5 Absolute Neuts (auto) 2.0 Neutrophils % 48.4 Lymphocytes % 30.0 Monocytes % 13.6 H Eosinophils % 7.3 H Basophils % 0.7 ESR PT with INR INR PTT (Actin FS) Sodium Potassium Chloride Carbon Dioxide Anion Gap BUN Creatinine Est GFR (CKD-EPI)AfAm Est GFR (CKD-EPI)NonAf Random Glucose Calcium Magnesium Total Bilirubin AST ALT Alkaline Phosphatase Creatine Kinase Troponin I Total Protein Albumin Triglycerides Cholesterol Total LDL Cholesterol HDL Cholesterol Vitamin B12 Urine Color Urine Appearance Urine pH Urine Protein Urine Glucose (UA) Urine Ketones Urine Blood Urine Nitrite Urine Bilirubin Urine Urobilinogen Ur Leukocyte Esterase Blood Type A POSITIVE A POSITIVE Antibody Screen Negative 12/24/19 12/24/19 12/24/19 11:20 11:20 11:20 WBC RBC Hgb Hct MCV MCH MCHC RDW Plt Count MPV Absolute Neuts (auto) Neutrophils % Lymphocytes % Monocytes % Eosinophils % Basophils % ESR PT with INR INR PTT (Actin FS) Sodium Potassium Chloride Carbon Dioxide Anion Gap BUN Creatinine Est GFR (CKD-EPI)AfAm Est GFR (CKD-EPI)NonAf Random Glucose Calcium Magnesium Total Bilirubin AST ALT Alkaline Phosphatase Creatine Kinase 96 Troponin I < 0.03 Total Protein Albumin Triglycerides Cholesterol Total LDL Cholesterol HDL Cholesterol Vitamin B12 350 Urine Color Urine Appearance Urine pH Urine Protein Urine Glucose (UA) Urine Ketones Urine Blood Urine Nitrite Urine Bilirubin Urine Urobilinogen Ur Leukocyte Esterase Blood Type Antibody Screen 12/24/19 12/24/19 12/24/19 11:20 11:40 17:30 WBC RBC Hgb Hct MCV MCH MCHC RDW Plt Count MPV Absolute Neuts (auto) Neutrophils % Lymphocytes % Monocytes % Eosinophils % Basophils % ESR 12 PT with INR INR PTT (Actin FS) Sodium Potassium Chloride Carbon Dioxide Anion Gap BUN Creatinine Est GFR (CKD-EPI)AfAm Est GFR (CKD-EPI)NonAf Random Glucose Calcium Magnesium Total Bilirubin AST ALT Alkaline Phosphatase Creatine Kinase Troponin I < 0.03 Total Protein Albumin Triglycerides Cholesterol Total LDL Cholesterol HDL Cholesterol Vitamin B12 Urine Color Yellow Urine Appearance Clear Urine pH 7.0 Urine Protein Negative Urine Glucose (UA) Negative Urine Ketones Negative Urine Blood Negative Urine Nitrite Negative Urine Bilirubin Negative Urine Urobilinogen 0.2 Ur Leukocyte Esterase Negative Blood Type Antibody Screen 12/24/19 12/25/19 12/25/19 17:30 00:01 07:10 WBC 5.0 RBC 4.28 Hgb 13.8 Hct 40.7 MCV 94.9 MCH 32.2 MCHC 34.0 RDW 13.1 Plt Count 198 MPV 8.9 Absolute Neuts (auto) 2.2 Neutrophils % 44.4 Lymphocytes % 35.4 Monocytes % 11.2 H Eosinophils % 8.4 H Basophils % 0.6 ESR PT with INR INR PTT (Actin FS) Sodium Potassium Chloride Carbon Dioxide Anion Gap BUN Creatinine Est GFR (CKD-EPI)AfAm Est GFR (CKD-EPI)NonAf Random Glucose Calcium Magnesium 2.1 Total Bilirubin AST ALT Alkaline Phosphatase Creatine Kinase Troponin I < 0.02 Total Protein Albumin Triglycerides Cholesterol Total LDL Cholesterol HDL Cholesterol Vitamin B12 Urine Color Urine Appearance Urine pH Urine Protein Urine Glucose (UA) Urine Ketones Urine Blood Urine Nitrite Urine Bilirubin Urine Urobilinogen Ur Leukocyte Esterase Blood Type Antibody Screen 12/25/19 07:10 WBC RBC Hgb Hct MCV MCH MCHC RDW Plt Count MPV Absolute Neuts (auto) Neutrophils % Lymphocytes % Monocytes % Eosinophils % Basophils % ESR PT with INR INR PTT (Actin FS) Sodium 136 Potassium 4.3 Chloride 104 Carbon Dioxide 25 Anion Gap 7 L BUN 17.0 Creatinine 0.7 Est GFR (CKD-EPI)AfAm 106.24 Est GFR (CKD-EPI)NonAf 91.67 Random Glucose 96 Calcium 8.4 L Magnesium 2.1 Total Bilirubin 1.0 AST 23 ALT 15 Alkaline Phosphatase 33 L Creatine Kinase Troponin I Total Protein 5.6 L Albumin 3.5 Triglycerides Cholesterol Total LDL Cholesterol HDL Cholesterol Vitamin B12 Urine Color Urine Appearance Urine pH Urine Protein Urine Glucose (UA) Urine Ketones Urine Blood Urine Nitrite Urine Bilirubin Urine Urobilinogen Ur Leukocyte Esterase Blood Type Antibody Screen HOSPITAL COURSE: Date of Admission:12/24/19 Date of Discharge: 12/25/19 Pre-Hospital Course 74 year-old male with a PMH of HTN, HLD, aortic aneurysm, and chronic sinusitis , who presented to the ED due to difficulty walking, slurred speech, and confusion starting around 9am. His states that he was unable to walk in a straight line and was falling over the the side and bumping into things as though he was drunk. She also noted slurring speech and states that he "did not make sense" when he was talking. For example, she asked him to come look at a picture, and he responded "there is a picture upstairs." The symptoms lasted about an hour. Two days ago patient had a similar episode of unsteady gait, walking into mcintosh and furniture. It lasted about 30 minutes and self-resolved. He thought he might have a virus because of a sick family contact, and did do anything about it. When he had the second epidose today he was persuaded to come to the ED. ED Course (1) Troponin neg x 1 (2) Na 130 Subsequent Hospital Course 74 year-old male with a PMH of HTN, HLD, aortic aneurysm, and chronic sinusitis , admitted for TIA v. CVA, also with hyponatremia. TIA v. CVA --CT and CTA head no acute process, MRI brain: no acute intracranial pathology, US carotids: no significant stenosis; neuro consult conclusion: possible TIA --no cardiac arrythmias seen on telemetry, serial troponins were negative, echo: LV normal, EF 65%; RV normal; trace to mild MR; mild TR; trace to mild PI Hyponatremia --symptoms may have been attributable to a metabolic encephalopathy due to hyponatremia; previous episode of hyponatremia during 2017 admission; patient also states he had been on HCTZ in past for HTN but stopped due to hyponatremia --Na improved with IV fluids Aortic aneurysm --followed regularly by protection consultant Dr. Mccrary Minutes to complete discharge: 35 Discharge Summary Problems reviewed: Yes Reason For Visit: TRANSIENT ISCHEMIC ATTACK Current Active Problems Transient ischemic attack (Acute) Condition: Improved - Instructions Diet, Activity, Other Instructions: It is recommended you follow up with your protection consultant, Dr. Mccrary, at your earliest opportunity. Referrals: Nelson Mccrary MD [Non Staff, Medical] - Disposition: HOME - Home Medications Comprehensive Discharge Medication List: Ambulatory Orders Candesartan Cilexetil [Atacand] 32 mg PO DAILY 12/24/19 Magnesium Oxide [Magnesium] 400 mg PO DAILY 12/24/19 Metoprolol Succinate [Toprol Xl] 50 mg PO DAILY 12/24/19 This patient is new to me today: No Emergency Visit: Yes ED Registration Date: 12/24/19 Care time: The patient presented to the Emergency Department on the above date and was hospitalized for further evaluation of their emergent condition. Critical Care patient: No - Discharge Referral Referred to [facility] Med [facility].C.: No
[2019-12-25 09:24] VITALS: BP 145/76; PULSE 65; TEMP 97.6
[2019-12-25] MEDS ORDERED: ASPIRIN COATED 81 MG TABLET.EC PO SCH (10:00)
[2019-12-25] MEDS ORDERED: VALSARTAN 160 MG TABLET (UD) PO SCH (10:00)
[2019-12-25] MEDS ORDERED: CANDESARTAN CILEXETIL 32 MG PO SCH (10:00)
[2019-12-25] MEDS: amLODIPine BESYLATE 5 MG TABLET (FP) PO SCH ×2 (10:15→10:20)
--- NOTE | 2019-12-25 11:40 | EKG ---
Test Reason : Blood Pressure : / mmHG Vent. Rate : 065 BPM Atrial Rate : 065 BPM P-R Int : 160 ms QRS Dur : 092 ms QT Int : 382 ms P-R-T Axes : 008 000 046 degrees QTc Int : 397 ms NORMAL SINUS RHYTHM NORMAL ECG Confirmed by Ang Pickett MD ([id number]) on 12/25/2019 11:40:11 AM Referred By: HYUN BLAKE Confirmed By:Ang Pickett MD
== END 2019-12-25 11:45 | disposition home or self-care (01) | DRG 640 ==
LOC: FER 10:54 → FM/S 12:22
PROVIDERS: ADMIT Internal Medicine; ATTEND Nurse Practitioner Acute Care
DX: E87.1 Hypo-osmolality and hyponatremia (principal); G93.41 Metabolic encephalopathy; G45.9 Transient cerebral ischemic attack, unspecified; I10 Essential (primary) hypertension; E78.5 Hyperlipidemia, unspecified; I71.9 Aortic aneurysm of unspecified site, without rupture; R47.81 Slurred speech
CPT/HCPCS: 36415; 70450-TC; 70496-TC; 70551-TC; 80053; 80061; 81003; 82550; 82607; 83036; 83721; 83735; 84443; 84484; 85025; 85610; 85651; 85730; 86850; 86900; 86901; 93005; 93306-TC; 93880-TC; 99284-25; J7030; Q9967